=== PATIENT | female | born 1980 | race Two or more races ===

== ENCOUNTER 2019-02-21 06:00 | Inpatient (IN) | payer SELFPAY ==
[~2019-02-21] VITALS: Ht 157.5 cm; Wt 59.0 kg
[2019-02-21] MEDS ORDERED: ONDANSETRON PF 4 MG/2 ML VIAL. IV ONE (06:30)
[2019-02-21] MEDS ORDERED: FAMOTIDINE 20 MG/2 ML VIAL IVP ONE (06:30)
[2019-02-21] MEDS ORDERED: IV NORMAL SALINE 1000ML BAG 1,000 ML IV SCH (06:30)
--- NOTE | 2019-02-21 06:34 | PHYS DOC ---
Past Medical History Past Medical History: No Pertinent History Past Surgical History: (x3) Additional Information: Denies a smoking Alcohol Use: None Drug Use: None Adult General Chief Complaint Chief Complaint: NAUSEA/VOMITING/DIARRHA HPI HPI Patient is a 38 year old female who presents with complaining of nausea and vomiting and diarrhea and abdominal pain. Patient is [place]-speaking and history was taking via contracting specialist service. Patient complaining of sudden onset of nausea and vomiting since 2330 last night with 7- 8 episodes of nonbloody vomiting and episodes of diarrhea with constant epigastric aching pain. Patient denies radiation of pain and rated her pain 8/10. Patient denies fever and chills , urinary symptom and sick contact. Patient states she had episodes of pain that usually getting better with Zantac but this time her pain did not go away. Patient had a big dinner last night after Passover celebration. Review of Systems Review of Systems Constitutional: Denies fever or chills [] Eyes: Denies change in visual acuity, redness, or eye pain [] HENT: Denies nasal congestion or sore throat [] Respiratory: Denies cough or shortness of breath [] Cardiovascular: No additional information not addressed in HPI [] GI: Reports abdominal pain, nausea, vomiting, diarrhea [] : Denies dysuria or hematuria [] Musculoskeletal: Denies back pain or joint pain [] Integument: Denies rash or skin lesions [] Neurologic: Denies headache, focal weakness or sensory changes [] Endocrine: Denies polyuria or polydipsia [] All other systems were reviewed and found to be within normal limits, except as documented in this note. Current Medications Current Medications Current Medications Medications (Trade) Dose Ordered Sig/[facility] Start Time Stop Time Status Last Admin Dose Admin Famotidine (Pepcid Vial) 20 mg 1X ONCE 02/21/19 06:30 02/21/19 06:31 DC 02/21/19 06:41 20 MG Fentanyl Citrate (Fentanyl 2ml Vial) 50 mcg 1X ONCE 02/21/19 07:30 02/21/19 07:31 DC Ondansetron HCl (Zofran) 4 mg 1X ONCE 02/21/19 06:30 02/21/19 06:31 DC 02/21/19 06:39 4 MG Sodium Chloride 1,000 ml @ 1,000 mls/hr 1X ONCE 02/21/19 08:15 02/21/19 09:14 DC 02/21/19 09:41 1,000 MLS/HR Allergies Allergies Allergies Coded Allergies Type Severity Reaction Last Updated Verified No Known Drug Allergies 02/21/19 No Physical Exam Physical Exam Constitutional: Well developed, well nourished, mild distress, non-toxic appearance. [] HENT: Normocephalic, atraumatic, oropharynx dry. Eyes: PERRLA, EOMI, conjunctiva normal, no discharge. [] Neck: Normal range of motion, no tenderness, supple, no stridor. [] Cardiovascular:Heart rate regular rhythm, no murmur [] Lungs & Thorax: Bilateral breath sounds clear to auscultation [] Abdomen: Bowel sounds normal, soft, guarding in the epigastric and left lower quadrant , no tenderness, no masses, no pulsatile masses. [] Skin: Warm, dry, no erythema, no rash. [] Back: No tenderness, no CVA tenderness. [] Extremities: No tenderness, no cyanosis, no clubbing, ROM intact, no edema. [] Neurologic: Alert and oriented X 3, normal motor function, normal sensory function, no focal deficits noted. [] Psychologic: Affect normal, judgement normal, mood normal. [] Current Patient Data Vital Signs Vital Signs Date Time Temp Pulse Resp B/P (MAP) Pulse Ox O2 Delivery O2 Flow Rate FiO2 02/21/19 08:00 88 20 111/62 (78) 98 Room Air 02/21/19 06:03 98.2 98.2 Lab Values Laboratory Tests Test 02/21/19 06:10 02/21/19 06:15 02/21/19 06:21 02/21/19 08:25 Urine Collection Type Unknown Urine Color Yellow Urine Clarity Clear Urine pH 8.5 Urine Specific [place] 1.025 Urine Protein Negative mg/dL (NEG-TRACE) Urine Glucose (UA) Negative mg/dL (NEG) Urine Ketones (Stick) Negative mg/dL (NEG) Urine Blood Moderate (NEG) Urine Nitrite Negative (NEG) Urine Bilirubin Negative (NEG) Urine Urobilinogen Dipstick 0.2 mg/dL (0.2 mg/dL) Urine Leukocyte Esterase Trace (NEG) Urine RBC 1-2 /HPF (0-2) Urine WBC Rare /HPF (0-4) Urine Squamous Epithelial Cells Many /LPF Urine Bacteria Few /HPF (0-FEW) White Blood Count 19.7 x10^3/uL (4.0-11.0) H Red Blood Count 4.59 x10^6/uL (3.50-5.40) Hemoglobin 15.4 g/dL (12.0-15.5) Hematocrit 45.2 % (36.0-47.0) Mean Corpuscular Volume 99 fL (79-100) Mean Corpuscular Hemoglobin 34 pg (25-35) Mean Corpuscular Hemoglobin Concent 34 g/dL (31-37) Red Cell Distribution Width 13.3 % (11.5-14.5) Platelet Count 297 x10^3/uL (140-400) Neutrophils (%) (Auto) 87 % (31-73) H Lymphocytes (%) (Auto) 9 % (24-48) L Monocytes (%) (Auto) 4 % (0-9) Eosinophils (%) (Auto) 0 % (0-3) Basophils (%) (Auto) 0 % (0-3) Neutrophils # (Auto) 17.2 x10^3uL (1.8-7.7) H Lymphocytes # (Auto) 1.7 x10^3/uL (1.0-4.8) Monocytes # (Auto) 0.8 x10^3/uL (0.0-1.1) Eosinophils # (Auto) 0.0 x10^3/uL (0.0-0.7) Basophils # (Auto) 0.0 x10^3/uL (0.0-0.2) Platelet Estimate Pending Sodium Level 138 mmol/L (136-145) Potassium Level 3.6 mmol/L (3.5-5.1) Chloride Level 101 mmol/L (98-107) Carbon Dioxide Level 25 mmol/L (21-32) Anion Gap 12 (6-14) Blood Urea Nitrogen 11 mg/dL (7-20) Creatinine 0.7 mg/dL (0.6-1.0) Estimated GFR (Cockcroft-Gault) 94.2 BUN/Creatinine Ratio 16 (6-20) Glucose Level 154 mg/dL (70-99) H Calcium Level 9.5 mg/dL (8.5-10.1) Total Bilirubin 0.4 mg/dL (0.2-1.0) Aspartate Amino Transferase (AST) 17 U/L (15-37) Alanine Aminotransferase (ALT) 22 U/L (14-59) Alkaline Phosphatase 68 U/L (46-116) Total Protein 7.8 g/dL (6.4-8.2) Albumin 4.0 g/dL (3.4-5.0) Albumin/Globulin Ratio 1.1 (1.0-1.7) Lipase 208 U/L (73-393) POC Urine HCG, Qualitative Hcg negative (Negative) Lactic Acid Level 2.2 mmol/L (0.4-2.0) H Laboratory Tests 02/21/19 06:15 Laboratory Tests 02/21/19 06:15 EKG EKG [] Radiology/Procedures Radiology/Procedures [facility] [address] [place] [address] IMAGING REPORT Signed PATIENT: AYLIN MERINO ACCOUNT: [id number] : 1980 LOCATION: ER AGE: 38 SEX: F EXAM STATUS: REG ER ORD. PHYSICIAN: LEYLA LOPES MD REASON: nausea and vomiting and abdominal pain PROCEDURE: ABDOMEN LTD Right upper quadrant abdominal ultrasound History: N/V/RUQ PAIN Comparison: None. Technique: Transabdominal ultrasound images are obtained. Findings: Visualized pancreas is unremarkable. Liver is normal in echogenicity. Right hepatic lobe measures 17.1 cm. Portal flow is hepatopedal. There is no gallbladder wall thickening. Sonographic Ascencio sign is negative. There is a large echogenic rimmed gallstone with dense posterior acoustic shadowing. The gallstone measures up to 5 cm. No pericholecystic fluid is seen. Common bile duct caliber is normal measuring 4 mm in diameter. The right kidney measures 9.9 cm in length and is without evidence of obstruction or stone. IVC is unremarkable. IMPRESSION: Cholelithiasis. Electronically signed by: Leighton Mahan MD (02/21/2019 8:01 AM) [id number] DICTATED and SIGNED BY: LEIGHTON MAHAN MD DATE: 02/21/19 0801 IMAGING REPORT Signed PATIENT: AYLIN MERINO ACCOUNT: [id number] : 1980 LOCATION: [address] [place] [address] AGE: 38 SEX: F EXAM STATUS: ADM IN ORD. PHYSICIAN: LEYLA LOPES MD REASON: abdominal pain, leukocytosis, cholelithiasis PROCEDURE: CT ABD PELV W/ IV CONTRST ONLY PQRS Compliance Statement: One or more of the following individualized dose reduction techniques were utilized for this examination: 1. Automated exposure control 2. Adjustment of the mA and/or kV according to patient size 3. Use of iterative reconstruction technique CT ABD PELV W/ IV CONTRST ONLY Clinical Indication: Nausea, vomiting, diarrhea. Comparison: Limited abdominal ultrasound, earlier same day. Technique: Helical CT imaging of the abdomen and pelvis is performed after 75 cc of Omnipaque 300 IV contrast. Oral contrast not given. Findings: Lung bases essentially clear. Cardiac size normal. There are 2 large partially rim calcified gallstones. Each measures on the order of 2.5 cm. No gallbladder wall thickening is identified. Liver, spleen, pancreas, adrenal glands, and abdominal aorta caliber are normal. Kidneys enhance symmetrically, no hydronephrosis. Small right upper pole cortical cyst. Small interpolar left cortical cyst posteriorly. Stomach unremarkable. There are multiple small bowel loops that are not dilated but demonstrate mild wall thickening. The appendix is normal caliber. No surrounding inflammation. The descending and sigmoid colon are not well distended. There is borderline wall thickening. There is mucosal hyperenhancement. Otherwise there is no colon wall thickening. No abdominal adenopathy or free fluid. The urinary bladder is normal. Uterus unremarkable. No pelvic free fluid. No acute bone abnormality. IMPRESSION: 1. Multiple mid small bowel loops are mildly thick-walled, fluid-filled, and nondilated. There is mucosal hyperenhancement and borderline wall thickening of the descending and sigmoid colon. Findings suggestive of nonspecific enterocolitis. 2. Cholelithiasis. 3. There is no bowel obstruction. Electronically signed by: Leighton Mahan MD (02/21/2019 9:30 AM) [id number] DICTATED and SIGNED BY: LEIGHTON MAHAN MD DATE: 02/21/19 0930 Course & Med Decision Making Course & Med Decision Making Pertinent Labs and Imaging studies reviewed. (See chart for details) Evaluation of patient in ER showed 38-year-old female patient with complaining of episodes of vomiting and diarrhea and abdominal pain. Patient had a white count of 19.7 and cholelithiasis. Lactic acid was 2.2. Patient did not have hypotension or fever. Patient treated with IV fluid and Zofran and fentanyl with improvement of her condition. Patient treated for sepsis with IV fluid and antibiotic. CT of abdomen/pelvic is pending.Patient requiring admission for further evaluation and treatment. Discussed with Dr. Durham who is in agreement with admission. Discussed findings and plan with patient and family, who acknowledge understanding and agreement. Dragon Disclaimer Dragon Disclaimer This electronic medical record was generated, in whole or in part, using a voice recognition dictation system. Departure Departure Impression: Primary Impression: Sepsis Additional Impressions: Cholecystitis Acute gastroenteritis Colitis Disposition: ADMITTED INPATIENT (at 0 820) Admitting Physician: Ofelia Durham (accepted admission at 0 818) Condition: IMPROVED Problem Qualifiers Primary Impression: Sepsis Sepsis type: sepsis due to unspecified organism Qualified Codes: A41.9 - Sepsis, unspecified organism LEYLA LOPES MD Feb 21, 2019 06:34
[2019-02-21 06:45] LABS: BASO % 0 % (0-3); CALCIUM 9.5 mg/dL (8.5-10.1); CREATININE 0.7 mg/dL (0.6-1.0); EOS % 0 % (0-3); GFR 94.2; HEMATOCRIT 45.2 % (36.0-47.0); HEMOGLOBIN 15.4 g/dL (12.0-15.5); LYMPH # 1.7 x10^3/uL (1.0-4.8); LYMPH % 9 % (24-48); MEAN CORPUSCULAR HEMOGLOBIN 34 pg (25-35); MEAN CORPUSCULAR HGB CONC 34 g/dL (31-37); MEAN CORPUSCULAR VOLUME 99 fL (79-100); MONO # 0.8 x10^3/uL (0.0-1.1); MONO % 4 % (0-9); NEUT # 17.2 x10^3uL (1.8-7.7); NEUT % 87 % (31-73); PLATELET COUNT 297 x10^3/uL (140-400); POTASSIUM 3.6 mmol/L (3.5-5.1); RED BLOOD COUNT 4.59 x10^6/uL (3.50-5.40); RED CELL DISTRIBUTION WIDTH 13.3 % (11.5-14.5); WHITE BLOOD COUNT 19.7 x10^3/uL (4.0-11.0)
[2019-02-21 06:49] LABS: ALBUMIN/GLOBULIN RATIO 1.1 (1.0-1.7); TOTAL BILIRUBIN 0.4 mg/dL (0.2-1.0); TOTAL PROTEIN 7.8 g/dL (6.4-8.2)
[2019-02-21 06:50] LABS: BILIRUBIN,URINE NEGATIVE (NEG); CLARITY,URINE CLEAR; COLOR,URINE YELLOW; NITRITE,URINE NEGATIVE (NEG); PH,URINE 8.5; PROTEIN,URINE NEGATIVE (NEG-TRACE); UROBILINOGEN,URINE 0.2 mg/dL (0.2 mg/dL)
[2019-02-21 07:05] LABS: BACTERIA,URINE FEW /HPF (0-FEW); SQUAMOUS EPITHELIAL CELL,UR MANY /LPF; WBC,URINE RARE /HPF (0-4)
[2019-02-21] MEDS ORDERED: fentaNYL PF VIAL 100 MCG/2 ML VIAL IV ONE (07:30)
--- NOTE | 2019-02-21 08:04 | RAD ---
Right upper quadrant abdominal ultrasound History: N/V/RUQ PAIN Comparison: None. Technique: Transabdominal ultrasound images are obtained. Findings: Visualized pancreas is unremarkable. Liver is normal in echogenicity. Right hepatic lobe measures 17.1 cm. Portal flow is hepatopedal. There is no gallbladder wall thickening. Sonographic Ascencio sign is negative. There is a large echogenic rimmed gallstone with dense posterior acoustic shadowing. The gallstone measures up to 5 cm. No pericholecystic fluid is seen. Common bile duct caliber is normal measuring 4 mm in diameter. The right kidney measures 9.9 cm in length and is without evidence of obstruction or stone. IVC is unremarkable. IMPRESSION: Cholelithiasis. Electronically signed by: Leighton Mahan MD (02/21/2019 8:01 AM) [id number]
[2019-02-21] MEDS ORDERED: IV NORMAL SALINE 1000ML BAG 1,000 ML IV ONE ×3 (08:15→15:00)
[2019-02-21] MEDS ORDERED: CONTRAST GIVEN. MC PRN (08:30)
[2019-02-21] MEDS ORDERED: IOHEXOL 300 MG/ML 100ML VIAL. IV ONE (08:30)
[2019-02-21] MEDS ORDERED: cefTRIAXone IV Push 1 GM VIAL. IVP ONE (09:15)
--- NOTE | 2019-02-21 09:33 | RAD ---
PQRS Compliance Statement: One or more of the following individualized dose reduction techniques were utilized for this examination: 1. Automated exposure control 2. Adjustment of the mA and/or kV according to patient size 3. Use of iterative reconstruction technique CT ABD PELV W/ IV CONTRST ONLY Clinical Indication: Nausea, vomiting, diarrhea. Comparison: Limited abdominal ultrasound, earlier same day. Technique: Helical CT imaging of the abdomen and pelvis is performed after 75 cc of Omnipaque 300 IV contrast. Oral contrast not given. Findings: Lung bases essentially clear. Cardiac size normal. There are 2 large partially rim calcified gallstones. Each measures on the order of 2.5 cm. No gallbladder wall thickening is identified. Liver, spleen, pancreas, adrenal glands, and abdominal aorta caliber are normal. Kidneys enhance symmetrically, no hydronephrosis. Small right upper pole cortical cyst. Small interpolar left cortical cyst posteriorly. Stomach unremarkable. There are multiple small bowel loops that are not dilated but demonstrate mild wall thickening. The appendix is normal caliber. No surrounding inflammation. The descending and sigmoid colon are not well distended. There is borderline wall thickening. There is mucosal hyperenhancement. Otherwise there is no colon wall thickening. No abdominal adenopathy or free fluid. The urinary bladder is normal. Uterus unremarkable. No pelvic free fluid. No acute bone abnormality. IMPRESSION: 1. Multiple mid small bowel loops are mildly thick-walled, fluid-filled, and nondilated. There is mucosal hyperenhancement and borderline wall thickening of the descending and sigmoid colon. Findings suggestive of nonspecific enterocolitis. 2. Cholelithiasis. 3. There is no bowel obstruction. Electronically signed by: Leighton Mahan MD (02/21/2019 9:30 AM) [id number]
[2019-02-21 10:12] LABS: % BANDS 22 % (0-9); % BASOS 1 % (0-3); % LYMPHS 5 % (24-48); % MONOS 1 % (0-10); % SEGS 71 % (35-66)
[2019-02-21 10:17] LABS: PLT ESTIMATE ADEQUATE (ADEQUATE)
[2019-02-21 10:18] LABS: ANISOCYTOSIS SLIGHT
[2019-02-21 10:19] LABS: TOXIC VACUOLATION SLIGHT
--- NOTE | 2019-02-21 10:42 | PDOC2 ---
MORENITA GONZALEZ [employer] 02/21/19 1042: CONSULT Date of Consult Date of Consult DATE: 02/21/19 TIME: 10:35 Reason for Consult Reason for Consult: cholecystitis Referring Physician Referring Physician: ER Identification/Chief Complaint Chief Complaint abdominal pain Source Source: Chart review, Patient History of Present Illness Reason for Visit: Abdominal pain, nausea, emesis and diarrhea started yesterday around 11pm. Currently she is feeling better. No similar symptoms in past. Pain was mainly right side, epigastric Past Medical History Past Medical History no pertinent hx Past Surgical History Past Surgical History: (x3) Family History Family History: Other (noncontributory to current illness ) Social History No ALCOHOL: none Drugs: None Lives: with Family Current Problem List Problem List Problems Medical Problems: (1) Acute gastroenteritis Status: Acute (2) Cholecystitis Status: Acute (3) Colitis Status: Acute (4) Sepsis Status: Acute Current Medications Current Medications Current Medications Sodium Chloride 1,000 ml @ 1,000 mls/hr Q1H IV Last administered on 02/21/19at 06:41; Start 02/21/19 at 06:30; Stop 02/21/19 at 07:29; Status DC Ondansetron HCl (Zofran) 4 mg 1X ONCE IV Last administered on 02/21/19at 06:39; Start 02/21/19 at 06:30; Stop 02/21/19 at 06:31; Status DC Famotidine (Pepcid Vial) 20 mg 1X ONCE IVP Last administered on 02/21/19at 06:41; Start 02/21/19 at 06:30; Stop 02/21/19 at 06:31; Status DC Fentanyl Citrate (Fentanyl 2ml Vial) 50 mcg 1X ONCE IV ; Start 02/21/19 at 07:30; Stop 02/21/19 at 07:31; Status DC Sodium Chloride 1,000 ml @ 1,000 mls/hr 1X ONCE IV Last administered on 02/21/19at 09:41; Start 02/21/19 at 08:15; Stop 02/21/19 at 09:14; Status DC Iohexol (Omnipaque 300 Mg/ml) 75 ml 1X ONCE IV Last administered on 02/21/19at 08:30; Start 02/21/19 at 08:30; Stop 02/21/19 at 08:31; Status DC Info (CONTRAST GIVEN -- Rx MONITORING) 1 each PRN DAILY PRN MC SEE COMMENTS; Start 02/21/19 at 08:30; Stop 02/23/19 at 08:29 Sodium Chloride 1,000 ml @ 150 mls/hr Q6H40M IV ; Start 02/21/19 at 08:43; Stop 02/22/19 at 08:42 Ceftriaxone Sodium (Rocephin) 1 gm 1X ONCE IVP Last administered on 02/21/19at 09:41; Start 02/21/19 at 09:15; Stop 02/21/19 at 09:16; Status DC Sodium Chloride 1,000 ml @ 1,000 mls/hr 1X ONCE IV ; Start 02/21/19 at 09:15; Stop 02/21/19 at 10:14; Status DC Allergies Allergies: Coded Allergies: No Known Drug Allergies (Unverified , 02/21/19) ROS General: No: Chills, Other (fevers) PSYCHOLOGICAL ROS: No: Anxiety, Depression Eyes: No Blurry vision, No Double vision HEENT: No: Heacaches, Sore Throat Hematological and Lymphatic: No: Bleeding Problems, Blood Clots Respiratory: No: Cough, Shortness of breath Cardiovascular: No Chest Pain, No Palpitations Gastrointestinal: Yes Other (see hpi) Genitourinary: No Dysuria, No Hematuria Musculoskeletal: No Joint Pain, No Muscle Pain Neurological: No Confusion, No Impaired Coord/balance Skin: No Pruritus, No Rash Physical Exam General: Alert, Oriented X3, Cooperative, No acute distress HEENT: PERRLA, Mucous membr. moist/pink Lungs: Clear to auscultation, Normal air movement Heart: Regular rate, Normal S1, Normal S2, No murmurs Abdomen: Soft, Other (mildly TTP upper abdomen ) Extremities: No clubbing, No cyanosis Skin: No rashes, No breakdown Neuro: Normal gait, Normal speech Psych/Mental Status: Mental status NL MUSCULOSKELETAL: No deformity, No swelling Vitals VITALS Vital Signs Date Time Temp Pulse Resp B/P (MAP) Pulse Ox O2 Delivery O2 Flow Rate FiO2 02/21/19 08:30 96 27 100 Room Air 02/21/19 08:00 111/62 (78) 02/21/19 06:03 98.2 98.2 Labs Labs Laboratory Tests Test 02/21/19 06:10 02/21/19 06:15 02/21/19 06:21 02/21/19 08:25 Urine Collection Type Unknown Urine Color Yellow Urine Clarity Clear Urine pH 8.5 Urine Specific [place] 1.025 Urine Protein Negative mg/dL (NEG-TRACE) Urine Glucose (UA) Negative mg/dL (NEG) Urine Ketones (Stick) Negative mg/dL (NEG) Urine Blood Moderate (NEG) Urine Nitrite Negative (NEG) Urine Bilirubin Negative (NEG) Urine Urobilinogen Dipstick 0.2 mg/dL (0.2 mg/dL) Urine Leukocyte Esterase Trace (NEG) Urine RBC 1-2 /HPF (0-2) Urine WBC Rare /HPF (0-4) Urine Squamous Epithelial Cells Many /LPF Urine Bacteria Few /HPF (0-FEW) White Blood Count 19.7 x10^3/uL (4.0-11.0) Red Blood Count 4.59 x10^6/uL (3.50-5.40) Hemoglobin 15.4 g/dL (12.0-15.5) Hematocrit 45.2 % (36.0-47.0) Mean Corpuscular Volume 99 fL (79-100) Mean Corpuscular Hemoglobin 34 pg (25-35) Mean Corpuscular Hemoglobin Concent 34 g/dL (31-37) Red Cell Distribution Width 13.3 % (11.5-14.5) Platelet Count 297 x10^3/uL (140-400) Neutrophils (%) (Auto) 87 % (31-73) Lymphocytes (%) (Auto) 9 % (24-48) Monocytes (%) (Auto) 4 % (0-9) Eosinophils (%) (Auto) 0 % (0-3) Basophils (%) (Auto) 0 % (0-3) Neutrophils # (Auto) 17.2 x10^3uL (1.8-7.7) Lymphocytes # (Auto) 1.7 x10^3/uL (1.0-4.8) Monocytes # (Auto) 0.8 x10^3/uL (0.0-1.1) Eosinophils # (Auto) 0.0 x10^3/uL (0.0-0.7) Basophils # (Auto) 0.0 x10^3/uL (0.0-0.2) Segmented Neutrophils % 71 % (35-66) Band Neutrophils % 22 % (0-9) Lymphocytes % 5 % (24-48) Monocytes % 1 % (0-10) Basophils % 1 % (0-3) Toxic Vacuolation Slight Platelet Estimate Adequate (ADEQUATE) Anisocytosis Slight Sodium Level 138 mmol/L (136-145) Potassium Level 3.6 mmol/L (3.5-5.1) Chloride Level 101 mmol/L (98-107) Carbon Dioxide Level 25 mmol/L (21-32) Anion Gap 12 (6-14) Blood Urea Nitrogen 11 mg/dL (7-20) Creatinine 0.7 mg/dL (0.6-1.0) Estimated GFR (Cockcroft-Gault) 94.2 BUN/Creatinine Ratio 16 (6-20) Glucose Level 154 mg/dL (70-99) Calcium Level 9.5 mg/dL (8.5-10.1) Total Bilirubin 0.4 mg/dL (0.2-1.0) Aspartate Amino Transf (AST/SGOT) 17 U/L (15-37) Alanine Aminotransferase (ALT/SGPT) 22 U/L (14-59) Alkaline Phosphatase 68 U/L (46-116) Total Protein 7.8 g/dL (6.4-8.2) Albumin 4.0 g/dL (3.4-5.0) Albumin/Globulin Ratio 1.1 (1.0-1.7) Lipase 208 U/L (73-393) Bedside Urine HCG, Qualitative Hcg negative (Negative) Lactic Acid Level 2.2 mmol/L (0.4-2.0) Laboratory Tests Test 02/21/19 06:10 02/21/19 06:15 02/21/19 06:21 02/21/19 08:25 Urine Collection Type Unknown Urine Color Yellow Urine Clarity Clear Urine pH 8.5 Urine Specific [place] 1.025 Urine Protein Negative mg/dL (NEG-TRACE) Urine Glucose (UA) Negative mg/dL (NEG) Urine Ketones (Stick) Negative mg/dL (NEG) Urine Blood Moderate (NEG) Urine Nitrite Negative (NEG) Urine Bilirubin Negative (NEG) Urine Urobilinogen Dipstick 0.2 mg/dL (0.2 mg/dL) Urine Leukocyte Esterase Trace (NEG) Urine RBC 1-2 /HPF (0-2) Urine WBC Rare /HPF (0-4) Urine Squamous Epithelial Cells Many /LPF Urine Bacteria Few /HPF (0-FEW) White Blood Count 19.7 x10^3/uL (4.0-11.0) Red Blood Count 4.59 x10^6/uL (3.50-5.40) Hemoglobin 15.4 g/dL (12.0-15.5) Hematocrit 45.2 % (36.0-47.0) Mean Corpuscular Volume 99 fL (79-100) Mean Corpuscular Hemoglobin 34 pg (25-35) Mean Corpuscular Hemoglobin Concent 34 g/dL (31-37) Red Cell Distribution Width 13.3 % (11.5-14.5) Platelet Count 297 x10^3/uL (140-400) Neutrophils (%) (Auto) 87 % (31-73) Lymphocytes (%) (Auto) 9 % (24-48) Monocytes (%) (Auto) 4 % (0-9) Eosinophils (%) (Auto) 0 % (0-3) Basophils (%) (Auto) 0 % (0-3) Neutrophils # (Auto) 17.2 x10^3uL (1.8-7.7) Lymphocytes # (Auto) 1.7 x10^3/uL (1.0-4.8) Monocytes # (Auto) 0.8 x10^3/uL (0.0-1.1) Eosinophils # (Auto) 0.0 x10^3/uL (0.0-0.7) Basophils # (Auto) 0.0 x10^3/uL (0.0-0.2) Segmented Neutrophils % 71 % (35-66) Band Neutrophils % 22 % (0-9) Lymphocytes % 5 % (24-48) Monocytes % 1 % (0-10) Basophils % 1 % (0-3) Toxic Vacuolation Slight Platelet Estimate Adequate (ADEQUATE) Anisocytosis Slight Sodium Level 138 mmol/L (136-145) Potassium Level 3.6 mmol/L (3.5-5.1) Chloride Level 101 mmol/L (98-107) Carbon Dioxide Level 25 mmol/L (21-32) Anion Gap 12 (6-14) Blood Urea Nitrogen 11 mg/dL (7-20) Creatinine 0.7 mg/dL (0.6-1.0) Estimated GFR (Cockcroft-Gault) 94.2 BUN/Creatinine Ratio 16 (6-20) Glucose Level 154 mg/dL (70-99) Calcium Level 9.5 mg/dL (8.5-10.1) Total Bilirubin 0.4 mg/dL (0.2-1.0) Aspartate Amino Transf (AST/SGOT) 17 U/L (15-37) Alanine Aminotransferase (ALT/SGPT) 22 U/L (14-59) Alkaline Phosphatase 68 U/L (46-116) Total Protein 7.8 g/dL (6.4-8.2) Albumin 4.0 g/dL (3.4-5.0) Albumin/Globulin Ratio 1.1 (1.0-1.7) Lipase 208 U/L (73-393) Bedside Urine HCG, Qualitative Hcg negative (Negative) Lactic Acid Level 2.2 mmol/L (0.4-2.0) Assessment/Plan Assessment/Plan abdominal pain, diarrhea US notes cholelithiasis, no cholecystitis findings CT findings of enterocolitis treat colitis, GI consult MARYAM ISLAS MD 02/21/19 1113: CONSULT Assessment/Plan Assessment/Plan Pt seen and examined. Agree with Ms. Gonzalez's note Pt with c/o N/V/D and abd pain abd soft, TTP RUQ and RLQ imaging c/w enterocolitis cont supportive care, ideally will be self limiting no surgical plans Thanks for consult! MORENITA GONZALEZ APRN Feb 21, 2019 10:42 MARYAM ISLAS MD Feb 21, 2019 11:13
[2019-02-21 10:47] VITALS: BP 114/65
--- NOTE | 2019-02-21 11:47 | NUR ---
Cleared reassessments from ED on [facility] to clear red boxes.
--- NOTE | 2019-02-21 12:38 | PDOC2 ---
GI CONSULT Reason For Consult: Enterocolitis HPI: HPI: 38 y/o female admitted through ER. Speaks Nicaraguan - translation help from RN. Tells me 4 years of recurrent epigastric/RUQ pain, n/v, and diarrhea. In between is asymptomatic. Precipitating by eating greasy foods. Latest episode awoke her from sleep last night at 11:00 p.m. Celebrated Easter yesterday. Reports bilious emesis x 8, mushy stools x 12. Abdomen hurts more when vomiting and stooling. Due to chronicity of symptoms, thought she might have gastritis so has been taking ranitidine PRN for a few years - usually helps but ineffective this time. Does have some heartburn sometimes. No dysphagia, hematemesis, hematochezia, melena, constipation, or weight loss. No previous EGD or colonoscopy. No GB, liver, pancreas, or PUD history. Tried ibuprofen this time because ranitidine wasn't helping. Labs unremarkable except WBC 19.7. On US: 5cm gallstone, normal CBD (4mm). On CT: cholelithiasis, unremarkable stomach, and "nonspecific enterocolitis" w/ non-dilated SB loops w/ mild wall thickening, descending and sigmoid colon not well distended w/ borderline wall thickening. Was given Rocephin and famotidine in the ER. Surgery following and suspects self-limiting enterocolitis as cause. PMH: PMH: x 3 FH: Family History: No pertinent hx (denies GB disease, GI cancers, and IBD) Social History: Smoke: No ALCOHOL: none Drugs: None ROS: GEN: Denies fevers, chills, sweats HEENT: Denies blurred vision, sore throat CV: Denies chest pain RESP: Denies shortness of air, cough GI: Per HPI : Denies hematuria, dysuria ENDO: Denies weight changes NEURO: Denies confusion, dizziness MSK: Denies weakness, joint pain/swelling SKIN: Denies jaundice, pruritus Vitals: Vitals: Vital Signs Date Time Temp Pulse Resp B/P (MAP) Pulse Ox O2 Delivery O2 Flow Rate FiO2 02/21/19 10:47 99.5 89 16 114/65 (81) Room Air 99.5 02/21/19 08:30 100 Labs: Labs: Laboratory Tests Test 02/21/19 06:10 02/21/19 06:15 02/21/19 06:21 02/21/19 08:25 Urine Collection Type Unknown Urine Color Yellow Urine Clarity Clear Urine pH 8.5 Urine Specific [place] 1.025 Urine Protein Negative mg/dL (NEG-TRACE) Urine Glucose (UA) Negative mg/dL (NEG) Urine Ketones (Stick) Negative mg/dL (NEG) Urine Blood Moderate (NEG) Urine Nitrite Negative (NEG) Urine Bilirubin Negative (NEG) Urine Urobilinogen Dipstick 0.2 mg/dL (0.2 mg/dL) Urine Leukocyte Esterase Trace (NEG) Urine RBC 1-2 /HPF (0-2) Urine WBC Rare /HPF (0-4) Urine Squamous Epithelial Cells Many /LPF Urine Bacteria Few /HPF (0-FEW) White Blood Count 19.7 x10^3/uL (4.0-11.0) Red Blood Count 4.59 x10^6/uL (3.50-5.40) Hemoglobin 15.4 g/dL (12.0-15.5) Hematocrit 45.2 % (36.0-47.0) Mean Corpuscular Volume 99 fL (79-100) Mean Corpuscular Hemoglobin 34 pg (25-35) Mean Corpuscular Hemoglobin Concent 34 g/dL (31-37) Red Cell Distribution Width 13.3 % (11.5-14.5) Platelet Count 297 x10^3/uL (140-400) Neutrophils (%) (Auto) 87 % (31-73) Lymphocytes (%) (Auto) 9 % (24-48) Monocytes (%) (Auto) 4 % (0-9) Eosinophils (%) (Auto) 0 % (0-3) Basophils (%) (Auto) 0 % (0-3) Neutrophils # (Auto) 17.2 x10^3uL (1.8-7.7) Lymphocytes # (Auto) 1.7 x10^3/uL (1.0-4.8) Monocytes # (Auto) 0.8 x10^3/uL (0.0-1.1) Eosinophils # (Auto) 0.0 x10^3/uL (0.0-0.7) Basophils # (Auto) 0.0 x10^3/uL (0.0-0.2) Segmented Neutrophils % 71 % (35-66) Band Neutrophils % 22 % (0-9) Lymphocytes % 5 % (24-48) Monocytes % 1 % (0-10) Basophils % 1 % (0-3) Toxic Vacuolation Slight Platelet Estimate Adequate (ADEQUATE) Anisocytosis Slight Sodium Level 138 mmol/L (136-145) Potassium Level 3.6 mmol/L (3.5-5.1) Chloride Level 101 mmol/L (98-107) Carbon Dioxide Level 25 mmol/L (21-32) Anion Gap 12 (6-14) Blood Urea Nitrogen 11 mg/dL (7-20) Creatinine 0.7 mg/dL (0.6-1.0) Estimated GFR (Cockcroft-Gault) 94.2 BUN/Creatinine Ratio 16 (6-20) Glucose Level 154 mg/dL (70-99) Calcium Level 9.5 mg/dL (8.5-10.1) Total Bilirubin 0.4 mg/dL (0.2-1.0) Aspartate Amino Transf (AST/SGOT) 17 U/L (15-37) Alanine Aminotransferase (ALT/SGPT) 22 U/L (14-59) Alkaline Phosphatase 68 U/L (46-116) Total Protein 7.8 g/dL (6.4-8.2) Albumin 4.0 g/dL (3.4-5.0) Albumin/Globulin Ratio 1.1 (1.0-1.7) Lipase 208 U/L (73-393) Bedside Urine HCG, Qualitative Hcg negative (Negative) Lactic Acid Level 2.2 mmol/L (0.4-2.0) Allergies: Coded Allergies: No Known Drug Allergies (Unverified , 02/21/19) Medications: Current Medications Medications (Trade) Dose Ordered Sig/Chao Route PRN Reason Start Time Stop Time Status Last Admin Dose Admin Sodium Chloride 1,000 ml @ 1,000 mls/hr Q1H IV 02/21/19 06:30 02/21/19 07:29 DC 02/21/19 06:41 Ondansetron HCl (Zofran) 4 mg 1X ONCE IV 02/21/19 06:30 02/21/19 06:31 DC 02/21/19 06:39 Famotidine (Pepcid Vial) 20 mg 1X ONCE IVP 02/21/19 06:30 02/21/19 06:31 DC 02/21/19 06:41 Sodium Chloride 1,000 ml @ 1,000 mls/hr 1X ONCE IV 02/21/19 08:15 02/21/19 09:14 DC 02/21/19 09:41 Iohexol (Omnipaque 300 Mg/ml) 75 ml 1X ONCE IV 02/21/19 08:30 02/21/19 08:31 DC 02/21/19 08:30 Ceftriaxone Sodium (Rocephin) 1 gm 1X ONCE IVP 02/21/19 09:15 02/21/19 09:16 DC 02/21/19 09:41 Imaging: Imaging: CT A/P w/ IV contrast 02/21 Findings: Lung bases essentially clear. Cardiac size normal. There are 2 large partially rim calcified gallstones. Each measures on theorder of 2.5 cm. No gallbladder wall thickening is identified. Liver, spleen, pancreas, adrenal glands, and abdominal aorta caliber are normal. Kidneys enhance symmetrically, no hydronephrosis. Small right upper pole cortical cyst. Small interpolar left cortical cyst posteriorly. Stomach unremarkable. There are multiple small bowel loops that are not dilated but demonstrate mild wall thickening. The appendix is normal caliber. No surrounding inflammation. The descending and sigmoid colon are not well distended. There is borderline wall thickening. There is mucosal hyperenhancement. Otherwise there is no colon wall thickening. No abdominal adenopathy or free fluid. The urinary bladder is normal. Uterus unremarkable. No pelvic free fluid. No acute bone abnormality. IMPRESSION: 1. Multiple mid small bowel loops are mildly thick-walled, fluid-filled, and nondilated. There is mucosal hyperenhancement and borderline wall thickening of the descending and sigmoid colon. Findings suggestive of nonspecific enterocolitis. 2. Cholelithiasis. 3. There is no bowel obstruction. RUQ US 02/21 Visualized pancreas is unremarkable. Liver is normal in echogenicity. Right hepatic lobe measures 17.1 cm. Portal flow is hepatopedal. There is no gallbladder wall thickening. Sonographic Ascencio sign is negative. There is a large echogenic rimmed gallstone with dense posterior acoustic shadowing. The gallstone measures up to 5 cm. No pericholecystic fluid is seen. Common bile duct caliber is normal measuring 4 mm in diameter. The right kidney measures 9.9 cm in length and is without evidence of obstruction or stone. IVC is unremarkable. IMPRESSION: Cholelithiasis. PE: GEN: NAD HEENT: Atraumatic, PERRL LUNGS: CTAB HEART: RRR ABD: soft, quite tender epigastrium to RUQ w/ some guarding, BS+ EXTREMITY: No edema SKIN: No rashes, no jaundice NEURO/PSYCH: A & O 3 A/P: A/P: Recurrent epigastric/RUQ pain, vomiting, diarrhea Intermittent heartburn Cholelithiasis Abnormal CT - "nonspecific enterocolitis" CRC screen - average risk -- Reviewed w/ [facility] - check HIDA w/ EF tomorrow, okay for clears today. Will also add PPI - IV for now, can change to PO as able. Stool studies for completeness. STEFFI DINH Feb 21, 2019 12:38
[2019-02-21] MEDS: IV NORMAL SALINE 1000ML BAG 1,000 ML IV SCH ×3 (12:51→18:36)
[2019-02-21] MEDS ORDERED: fentaNYL PF VIAL 100 MCG/2 ML VIAL IV PRN (13:00)
[2019-02-21] MEDS ORDERED: oxyCODONE/APAP 5/325 1 TAB TABLET PO PRN (13:00)
[2019-02-21] MEDS: PANTOPRAZOLE IV PUSH 40 MG VIAL. IVP SCH (14:20)
--- NOTE | 2019-02-21 14:48 | PDOC1 ---
History and Physical Date of Admission Date of Admission DATE: 02/21/19 TIME: 14:44 Source Source: Chart review, Patient History of Present Illness History of Present Illness Suzi is a 38 year old female who presents with complaining of nausea and vomiting and diarrhea and abdominal pain. no travel, no sick contacts she had 8/10 pain, better now s/p IV pain meds sudden nausea last night, vomited 8 times now, constant epigastric aching pain. she has had multiple episodes of diarrhea, which she feels is better, but just maybe in the past 1-2 hours. co Past Medical History Cardiovascular: No pertinent hx Pulmonary: No pertinent hx GI: No pertinent hx Heme/Onc: No pertinent hx Hepatobiliary: No pertinent hx Psych: No pertinent hx Rheumatologic: No pertinent hx Past Surgical History Past Surgical History: (x3) Family History Family History: Other (noncontributory to current illness ) Social History Smoke: No ALCOHOL: none Drugs: None Current Problem List Problem List Problems Medical Problems: (1) Acute gastroenteritis Status: Acute (2) Cholecystitis Status: Acute (3) Colitis Status: Acute (4) Sepsis Status: Acute Current Medications Current Medications Current Medications Sodium Chloride 1,000 ml @ 1,000 mls/hr Q1H IV Last administered on 02/21/19at 06:41; Start 02/21/19 at 06:30; Stop 02/21/19 at 07:29; Status DC Ondansetron HCl (Zofran) 4 mg 1X ONCE IV Last administered on 02/21/19at 06:39; Start 02/21/19 at 06:30; Stop 02/21/19 at 06:31; Status DC Famotidine (Pepcid Vial) 20 mg 1X ONCE IVP Last administered on 02/21/19at 06:41; Start 02/21/19 at 06:30; Stop 02/21/19 at 06:31; Status DC Fentanyl Citrate (Fentanyl 2ml Vial) 50 mcg 1X ONCE IV ; Start 02/21/19 at 07: 30; Stop 02/21/19 at 07:31; Status DC Sodium Chloride 1,000 ml @ 1,000 mls/hr 1X ONCE IV Last administered on 02/21/19at 09:41; Start 02/21/19 at 08:15; Stop 02/21/19 at 09:14; Status DC Iohexol (Omnipaque 300 Mg/ml) 75 ml 1X ONCE IV Last administered on 02/21/19at 08:30; Start 02/21/19 at 08:30; Stop 02/21/19 at 08:31; Status DC Info (CONTRAST GIVEN -- Rx MONITORING) 1 each PRN DAILY PRN MC SEE COMMENTS; Start 02/21/19 at 08:30; Stop 02/23/19 at 08:29 Sodium Chloride 1,000 ml @ 150 mls/hr Q6H40M IV Last administered on 02/21/19at 12:51; Start 02/21/19 at 08:43; Stop 02/22/19 at 08:42 Ceftriaxone Sodium (Rocephin) 1 gm 1X ONCE IVP Last administered on 02/21/19at 09:41; Start 02/21/19 at 09:15; Stop 02/21/19 at 09:16; Status DC Sodium Chloride 1,000 ml @ 1,000 mls/hr 1X ONCE IV ; Start 02/21/19 at 09:15; Stop 02/21/19 at 10:14; Status DC Fentanyl Citrate (Fentanyl 2ml Vial) 50 mcg PRN Q2HR PRN IV PAIN; Start 02/21/19 at 13:00 Oxycodone/ Acetaminophen (Percocet 5/325) 1 tab PRN Q4HRS PRN PO PAIN Last administered on 02/21/19at 13:26; Start 02/21/19 at 13:00 Pantoprazole Sodium (PROTONIX VIAL for IV PUSH) 40 mg DAILYAC IVP Last administered on 02/21/19at 14:20; Start 02/21/19 at 14:00 Allergies Allergies: Coded Allergies: No Known Drug Allergies (Unverified , 02/21/19) ROS General: YES: Chills; No: Night Sweats, Fatigue, Malaise, Appetite, Other PSYCHOLOGICAL ROS: No: Anxiety, Behavioral Disorder, Concentration difficultie, Decreased libido, Depression, Disorientation, Hallucinations, Hostility, Irritablity, Memory difficulties, Mood Swings, Obsessive thoughts, Physical abuse, Sexual abuse, Sleep disturbances, Suicidal ideation, Other Eyes: No Blurry vision, No Decreased vision, No Double vision, No Dry eyes, No Excessive tearing, No Eye Pain, No Itchy Eyes, No Loss of vision, No Photophobia, No Scotomata, No Uses contacts, No Uses glasses, No Other HEENT: No: Heacaches, Visual Changes, Hearing change, Nasal congestion, Nasal discharge, Oral lesions, Sinus pain, Sore Throat, Epistaxis, Sneezing, Snoring, Tinnitus, Vertigo, Vocal changes, Other Respiratory: No: Cough, Hemoptysis, Orthopnea, Pleuritic Pain, Shortness of breath, SOB with excertion, Sputum Changes, Stridor, Tachypnea, Wheezing, Other Cardiovascular: No Chest Pain, No Palpitations, No Orthopnea, No Paroxysmal Noc. Dyspnea, No Edema, No Lt Headedness, No Other Gastrointestinal: Yes Nausea, Yes Abdominal Pain, Yes Diarrhea Genitourinary: No Dysuria, No Frequency, No Incontinence, No Hematuria, No Retention, No Discharge, No Urgency, No Pain, No Flank Pain, No Other, No , No , No , No , No , No , No Musculoskeletal: No Gait Disturbance, No Joint Pain, No Joint Stiffness, No Joint Swelling, No Muscle Pain, No Muscular Weakness, No Pain In:, No Swelling In:, No Other Neurological: No Behavorial Changes, No Bowel/Bladder ControlChng, No Confus ion, No Dizziness, No Gait Disturbance, No Headaches, No Impaired Coord/balance, No Memory Loss, No Numbness/Tingling, No Seizures, No Speech Problems, No Tremors, No Visual Changes, No Weakness, No Other Skin: No Dry Skin, No Eczema, No Hair Changes, No Lumps, No Mole Changes, No Mottling, No Nail Changes, No Pruritus, No Rash, No Skin Lesion Changes, No Othe r, No Acne Physical Exam General: Alert, Cooperative, mild distress, moderate distress HEENT: EOMI, Mucous membr. moist/pink Lungs: Clear to auscultation, Normal air movement Heart: S1S2, no gallops, no murmurs Abdomen: Normal bowel sounds, Soft Rectal Exam: not examined Extremities: No cyanosis, No edema, Normal pulses Skin: No significant lesion Neuro: Normal speech, Normal tone, Sensation intact Psych/Mental Status: Mental status NL, Mood NL Vitals Vitals Vital Signs Date Time Temp Pulse Resp B/P (MAP) Pulse Ox O2 Delivery O2 Flow Rate FiO2 02/21/19 13:26 Room Air 4/22/19 10:47 99.5 89 16 114/65 (81) 99.5 02/21/19 08:30 100 Labs Labs Laboratory Tests Test 02/21/19 06:10 02/21/19 06:15 02/21/19 06:21 02/21/19 08:25 Urine Collection Type Unknown Urine Color Yellow Urine Clarity Clear Urine pH 8.5 Urine Specific [place] 1.025 Urine Protein Negative mg/dL (NEG-TRACE) Urine Glucose (UA) Negative mg/dL (NEG) Urine Ketones (Stick) Negative mg/dL (NEG) Urine Blood Moderate (NEG) Urine Nitrite Negative (NEG) Urine Bilirubin Negative (NEG) Urine Urobilinogen Dipstick 0.2 mg/dL (0.2 mg/dL) Urine Leukocyte Esterase Trace (NEG) Urine RBC 1-2 /HPF (0-2) Urine WBC Rare /HPF (0-4) Urine Squamous Epithelial Cells Many /LPF Urine Bacteria Few /HPF (0-FEW) White Blood Count 19.7 x10^3/uL (4.0-11.0) Red Blood Count 4.59 x10^6/uL (3.50-5.40) Hemoglobin 15.4 g/dL (12.0-15.5) Hematocrit 45.2 % (36.0-47.0) Mean Corpuscular Volume 99 fL (79-100) Mean Corpuscular Hemoglobin 34 pg (25-35) Mean Corpuscular Hemoglobin Concent 34 g/dL (31-37) Red Cell Distribution Width 13.3 % (11.5-14.5) Platelet Count 297 x10^3/uL (140-400) Neutrophils (%) (Auto) 87 % (31-73) Lymphocytes (%) (Auto) 9 % (24-48) Monocytes (%) (Auto) 4 % (0-9) Eosinophils (%) (Auto) 0 % (0-3) Basophils (%) (Auto) 0 % (0-3) Neutrophils # (Auto) 17.2 x10^3uL (1.8-7.7) Lymphocytes # (Auto) 1.7 x10^3/uL (1.0-4.8) Monocytes # (Auto) 0.8 x10^3/uL (0.0-1.1) Eosinophils # (Auto) 0.0 x10^3/uL (0.0-0.7) Basophils # (Auto) 0.0 x10^3/uL (0.0-0.2) Segmented Neutrophils % 71 % (35-66) Band Neutrophils % 22 % (0-9) Lymphocytes % 5 % (24-48) Monocytes % 1 % (0-10) Basophils % 1 % (0-3) Toxic Vacuolation Slight Platelet Estimate Adequate (ADEQUATE) Anisocytosis Slight Sodium Level 138 mmol/L (136-145) Potassium Level 3.6 mmol/L (3.5-5.1) Chloride Level 101 mmol/L (98-107) Carbon Dioxide Level 25 mmol/L (21-32) Anion Gap 12 (6-14) Blood Urea Nitrogen 11 mg/dL (7-20) Creatinine 0.7 mg/dL (0.6-1.0) Estimated GFR (Cockcroft-Gault) 94.2 BUN/Creatinine Ratio 16 (6-20) Glucose Level 154 mg/dL (70-99) Calcium Level 9.5 mg/dL (8.5-10.1) Total Bilirubin 0.4 mg/dL (0.2-1.0) Aspartate Amino Transf (AST/SGOT) 17 U/L (15-37) Alanine Aminotransferase (ALT/SGPT) 22 U/L (14-59) Alkaline Phosphatase 68 U/L (46-116) Total Protein 7.8 g/dL (6.4-8.2) Albumin 4.0 g/dL (3.4-5.0) Albumin/Globulin Ratio 1.1 (1.0-1.7) Lipase 208 U/L (73-393) Bedside Urine HCG, Qualitative Hcg negative (Negative) Lactic Acid Level 2.2 mmol/L (0.4-2.0) Laboratory Tests Test 02/21/19 06:10 02/21/19 06:15 02/21/19 06:21 02/21/19 08:25 Urine Collection Type Unknown Urine Color Yellow Urine Clarity Clear Urine pH 8.5 Urine Specific [place] 1.025 Urine Protein Negative mg/dL (NEG-TRACE) Urine Glucose (UA) Negative mg/dL (NEG) Urine Ketones (Stick) Negative mg/dL (NEG) Urine Blood Moderate (NEG) Urine Nitrite Negative (NEG) Urine Bilirubin Negative (NEG) Urine Urobilinogen Dipstick 0.2 mg/dL (0.2 mg/dL) Urine Leukocyte Esterase Trace (NEG) Urine RBC 1-2 /HPF (0-2) Urine WBC Rare /HPF (0-4) Urine Squamous Epithelial Cells Many /LPF Urine Bacteria Few /HPF (0-FEW) White Blood Count 19.7 x10^3/uL (4.0-11.0) Red Blood Count 4.59 x10^6/uL (3.50-5.40) Hemoglobin 15.4 g/dL (12.0-15.5) Hematocrit 45.2 % (36.0-47.0) Mean Corpuscular Volume 99 fL (79-100) Mean Corpuscular Hemoglobin 34 pg (25-35) Mean Corpuscular Hemoglobin Concent 34 g/dL (31-37) Red Cell Distribution Width 13.3 % (11.5-14.5) Platelet Count 297 x10^3/uL (140-400) Neutrophils (%) (Auto) 87 % (31-73) Lymphocytes (%) (Auto) 9 % (24-48) Monocytes (%) (Auto) 4 % (0-9) Eosinophils (%) (Auto) 0 % (0-3) Basophils (%) (Auto) 0 % (0-3) Neutrophils # (Auto) 17.2 x10^3uL (1.8-7.7) Lymphocytes # (Auto) 1.7 x10^3/uL (1.0-4.8) Monocytes # (Auto) 0.8 x10^3/uL (0.0-1.1) Eosinophils # (Auto) 0.0 x10^3/uL (0.0-0.7) Basophils # (Auto) 0.0 x10^3/uL (0.0-0.2) Segmented Neutrophils % 71 % (35-66) Band Neutrophils % 22 % (0-9) Lymphocytes % 5 % (24-48) Monocytes % 1 % (0-10) Basophils % 1 % (0-3) Toxic Vacuolation Slight Platelet Estimate Adequate (ADEQUATE) Anisocytosis Slight Sodium Level 138 mmol/L (136-145) Potassium Level 3.6 mmol/L (3.5-5.1) Chloride Level 101 mmol/L (98-107) Carbon Dioxide Level 25 mmol/L (21-32) Anion Gap 12 (6-14) Blood Urea Nitrogen 11 mg/dL (7-20) Creatinine 0.7 mg/dL (0.6-1.0) Estimated GFR (Cockcroft-Gault) 94.2 BUN/Creatinine Ratio 16 (6-20) Glucose Level 154 mg/dL (70-99) Calcium Level 9.5 mg/dL (8.5-10.1) Total Bilirubin 0.4 mg/dL (0.2-1.0) Aspartate Amino Transf (AST/SGOT) 17 U/L (15-37) Alanine Aminotransferase (ALT/SGPT) 22 U/L (14-59) Alkaline Phosphatase 68 U/L (46-116) Total Protein 7.8 g/dL (6.4-8.2) Albumin 4.0 g/dL (3.4-5.0) Albumin/Globulin Ratio 1.1 (1.0-1.7) Lipase 208 U/L (73-393) Bedside Urine HCG, Qualitative Hcg negative (Negative) Lactic Acid Level 2.2 mmol/L (0.4-2.0) VTE Prophylaxis Ordered VTE Prophylaxis Devices: No VTE Pharmacological Prophylaxi: Yes Assessment/Plan Assessment/Plan acute abdominal pain acute diarrhea colitis, possible infectious concern for ari, GI consult has ordered PeytonA MADELYN Aldridge MD Feb 21, 2019 14:48
[2019-02-21 14:57] VITALS: BP 89/45
[2019-02-21 19:00] VITALS: BP 100/59
[2019-02-21 23:00] VITALS: BP 95/56
[2019-02-22] MEDS: IV NORMAL SALINE 1000ML BAG 1,000 ML IV SCH ×3 (00:38→21:00)
[2019-02-22 03:00] VITALS: BP 99/57
[2019-02-22 05:14] LABS: HEMATOCRIT 38.9 % (36.0-47.0); HEMOGLOBIN 12.9 g/dL (12.0-15.5); RED BLOOD COUNT 3.95 x10^6/uL (3.50-5.40); RED CELL DISTRIBUTION WIDTH 13.2 % (11.5-14.5); WHITE BLOOD COUNT 8.8 x10^3/uL (4.0-11.0)
[2019-02-22] MEDS: PANTOPRAZOLE IV PUSH 40 MG VIAL. IVP SCH (05:27)
[2019-02-22 05:30] LABS: ALBUMIN 2.7 g/dL (3.4-5.0); ALBUMIN/GLOBULIN RATIO 0.9 (1.0-1.7); CALCIUM 7.8 mg/dL (8.5-10.1); CREATININE 0.5 mg/dL (0.6-1.0); GFR 138.8; TOTAL BILIRUBIN 0.3 mg/dL (0.2-1.0); TOTAL PROTEIN 5.7 g/dL (6.4-8.2)
[2019-02-22 05:35] LABS: POTASSIUM 2.8 mmol/L (3.5-5.1)
[2019-02-22 07:00] VITALS: BP_SYST 102; BP_SYST 108; BP_DIAS 54; BP_DIAS 70
[2019-02-22] MEDS ORDERED: POTASSIUM CHLORIDE 20 MEQ TABLET.ER. PO ONE ×2 (09:00→11:00)
--- NOTE | 2019-02-22 09:27 | PDOC ---
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 02/22/19 0927: SURGICAL PROGRESS NOTE Subjective some diarrhea now no abdominal pain no nausea Vital Signs Vital Signs Date Time Temp Pulse Resp B/P (MAP) Pulse Ox O2 Delivery O2 Flow Rate FiO2 02/22/19 07:00 97.8 67 16 102/54 (70) 97 97.8 02/22/19 03:00 Room Air I&O Intake and Output 02/22/19 06:59 Intake Total 1120 ml Balance 1120 ml Intake Oral 120 ml IV Total 1000 ml # Voids 3 General: Alert, Oriented X3, Cooperative, No acute distress Abdomen: Soft, No tenderness Labs Laboratory Tests Test 02/21/19 06:10 02/21/19 06:15 02/21/19 06:21 02/21/19 08:25 Urine Collection Type Unknown Urine Color Yellow Urine Clarity Clear Urine pH 8.5 Urine Specific [place] 1.025 Urine Protein Negative mg/dL (NEG-TRACE) Urine Glucose (UA) Negative mg/dL (NEG) Urine Ketones (Stick) Negative mg/dL (NEG) Urine Blood Moderate (NEG) Urine Nitrite Negative (NEG) Urine Bilirubin Negative (NEG) Urine Urobilinogen Dipstick 0.2 mg/dL (0.2 mg/dL) Urine Leukocyte Esterase Trace (NEG) Urine RBC 1-2 /HPF (0-2) Urine WBC Rare /HPF (0-4) Urine Squamous Epithelial Cells Many /LPF Urine Bacteria Few /HPF (0-FEW) White Blood Count 19.7 x10^3/uL (4.0-11.0) Red Blood Count 4.59 x10^6/uL (3.50-5.40) Hemoglobin 15.4 g/dL (12.0-15.5) Hematocrit 45.2 % (36.0-47.0) Mean Corpuscular Volume 99 fL (79-100) Mean Corpuscular Hemoglobin 34 pg (25-35) Mean Corpuscular Hemoglobin Concent 34 g/dL (31-37) Red Cell Distribution Width 13.3 % (11.5-14.5) Platelet Count 297 x10^3/uL (140-400) Neutrophils (%) (Auto) 87 % (31-73) Lymphocytes (%) (Auto) 9 % (24-48) Monocytes (%) (Auto) 4 % (0-9) Eosinophils (%) (Auto) 0 % (0-3) Basophils (%) (Auto) 0 % (0-3) Neutrophils # (Auto) 17.2 x10^3uL (1.8-7.7) Lymphocytes # (Auto) 1.7 x10^3/uL (1.0-4.8) Monocytes # (Auto) 0.8 x10^3/uL (0.0-1.1) Eosinophils # (Auto) 0.0 x10^3/uL (0.0-0.7) Basophils # (Auto) 0.0 x10^3/uL (0.0-0.2) Segmented Neutrophils % 71 % (35-66) Band Neutrophils % 22 % (0-9) Lymphocytes % 5 % (24-48) Monocytes % 1 % (0-10) Basophils % 1 % (0-3) Toxic Vacuolation Slight Platelet Estimate Adequate (ADEQUATE) Anisocytosis Slight Sodium Level 138 mmol/L (136-145) Potassium Level 3.6 mmol/L (3.5-5.1) Chloride Level 101 mmol/L (98-107) Carbon Dioxide Level 25 mmol/L (21-32) Anion Gap 12 (6-14) Blood Urea Nitrogen 11 mg/dL (7-20) Creatinine 0.7 mg/dL (0.6-1.0) Estimated GFR (Cockcroft-Gault) 94.2 BUN/Creatinine Ratio 16 (6-20) Glucose Level 154 mg/dL (70-99) Calcium Level 9.5 mg/dL (8.5-10.1) Total Bilirubin 0.4 mg/dL (0.2-1.0) Aspartate Amino Transf (AST/SGOT) 17 U/L (15-37) Alanine Aminotransferase (ALT/SGPT) 22 U/L (14-59) Alkaline Phosphatase 68 U/L (46-116) Total Protein 7.8 g/dL (6.4-8.2) Albumin 4.0 g/dL (3.4-5.0) Albumin/Globulin Ratio 1.1 (1.0-1.7) Lipase 208 U/L (73-393) Bedside Urine HCG, Qualitative Hcg negative (Negative) Lactic Acid Level 2.2 mmol/L (0.4-2.0) Test 02/22/19 04:30 White Blood Count 8.8 x10^3/uL (4.0-11.0) Red Blood Count 3.95 x10^6/uL (3.50-5.40) Hemoglobin 12.9 g/dL (12.0-15.5) Hematocrit 38.9 % (36.0-47.0) Mean Corpuscular Volume 99 fL (79-100) Mean Corpuscular Hemoglobin 33 pg (25-35) Mean Corpuscular Hemoglobin Concent 33 g/dL (31-37) Red Cell Distribution Width 13.2 % (11.5-14.5) Platelet Count 225 x10^3/uL (140-400) Sodium Level 142 mmol/L (136-145) Potassium Level 2.8 mmol/L (3.5-5.1) Chloride Level 108 mmol/L (98-107) Carbon Dioxide Level 24 mmol/L (21-32) Anion Gap 10 (6-14) Blood Urea Nitrogen 4 mg/dL (7-20) Creatinine 0.5 mg/dL (0.6-1.0) Estimated GFR (Cockcroft-Gault) 138.8 BUN/Creatinine Ratio 8 (6-20) Glucose Level 96 mg/dL (70-99) Calcium Level 7.8 mg/dL (8.5-10.1) Total Bilirubin 0.3 mg/dL (0.2-1.0) Aspartate Amino Transf (AST/SGOT) 12 U/L (15-37) Alanine Aminotransferase (ALT/SGPT) 14 U/L (14-59) Alkaline Phosphatase 45 U/L (46-116) Total Protein 5.7 g/dL (6.4-8.2) Albumin 2.7 g/dL (3.4-5.0) Albumin/Globulin Ratio 0.9 (1.0-1.7) Laboratory Tests Test 02/22/19 04:30 White Blood Count 8.8 x10^3/uL (4.0-11.0) Red Blood Count 3.95 x10^6/uL (3.50-5.40) Hemoglobin 12.9 g/dL (12.0-15.5) Hematocrit 38.9 % (36.0-47.0) Mean Corpuscular Volume 99 fL (79-100) Mean Corpuscular Hemoglobin 33 pg (25-35) Mean Corpuscular Hemoglobin Concent 33 g/dL (31-37) Red Cell Distribution Width 13.2 % (11.5-14.5) Platelet Count 225 x10^3/uL (140-400) Sodium Level 142 mmol/L (136-145) Potassium Level 2.8 mmol/L (3.5-5.1) Chloride Level 108 mmol/L (98-107) Carbon Dioxide Level 24 mmol/L (21-32) Anion Gap 10 (6-14) Blood Urea Nitrogen 4 mg/dL (7-20) Creatinine 0.5 mg/dL (0.6-1.0) Estimated GFR (Cockcroft-Gault) 138.8 BUN/Creatinine Ratio 8 (6-20) Glucose Level 96 mg/dL (70-99) Calcium Level 7.8 mg/dL (8.5-10.1) Total Bilirubin 0.3 mg/dL (0.2-1.0) Aspartate Amino Transf (AST/SGOT) 12 U/L (15-37) Alanine Aminotransferase (ALT/SGPT) 14 U/L (14-59) Alkaline Phosphatase 45 U/L (46-116) Total Protein 5.7 g/dL (6.4-8.2) Albumin 2.7 g/dL (3.4-5.0) Albumin/Globulin Ratio 0.9 (1.0-1.7) Problem List Problems Medical Problems: (1) Acute gastroenteritis Status: Acute (2) Cholecystitis Status: Acute (3) Colitis Status: Acute (4) Sepsis Status: Acute Assessment/Plan enterocolitis cholelithiasis no current surgical plans MARYAM ISLAS MD 02/22/19 1654: SURGICAL PROGRESS NOTE Assessment/Plan Pt seen and examined. agree with Ms. Gonzalez's note Pt without c/o today abd soft cont supportive care no surgical plans. 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 Feb 22, 2019 09:27 MARYAM ISLAS MD Feb 22, 2019 16:54
[2019-02-22] MEDS ORDERED: SINCALIDE 1.18 MCG in IV NORMAL SALINE 50ML 30 ML IV ONE (10:00)
[2019-02-22 11:00] VITALS: BP 111/63
--- NOTE | 2019-02-22 11:20 | PDOC ---
PROGRESS NOTES Chief Complaint Chief Complaint CC: Abdominal pain with Nausea/Vomiting/Diarrhea History of Present Illness History of Present Illness Pt seen and examined, pt's family at bedside, Malay speaking Pt just returning from HIDA scan, will await results. Vitals Vitals Vital Signs Date Time Temp Pulse Resp B/P (MAP) Pulse Ox O2 Delivery O2 Flow Rate FiO2 02/22/19 07:45 Room Air 02/22/19 07:00 97.8 67 16 102/54 (70) 97 97.8 Physical Exam General: Alert, Oriented X3, Cooperative, No acute distress Heart: Regular rate, Normal S1, Normal S2, No murmurs Lungs: Clear, Other (No crackels or wheezing) Abdomen: Soft, No tenderness Extremities: No cyanosis, No edema, Normal pulses Skin: No rashes, No breakdown, No significant lesion Labs LABS Laboratory Tests Test 02/22/19 04:30 White Blood Count 8.8 x10^3/uL (4.0-11.0) Red Blood Count 3.95 x10^6/uL (3.50-5.40) Hemoglobin 12.9 g/dL (12.0-15.5) Hematocrit 38.9 % (36.0-47.0) Mean Corpuscular Volume 99 fL (79-100) Mean Corpuscular Hemoglobin 33 pg (25-35) Mean Corpuscular Hemoglobin Concent 33 g/dL (31-37) Red Cell Distribution Width 13.2 % (11.5-14.5) Platelet Count 225 x10^3/uL (140-400) Sodium Level 142 mmol/L (136-145) Potassium Level 2.8 mmol/L (3.5-5.1) Chloride Level 108 mmol/L (98-107) Carbon Dioxide Level 24 mmol/L (21-32) Anion Gap 10 (6-14) Blood Urea Nitrogen 4 mg/dL (7-20) Creatinine 0.5 mg/dL (0.6-1.0) Estimated GFR (Cockcroft-Gault) 138.8 BUN/Creatinine Ratio 8 (6-20) Glucose Level 96 mg/dL (70-99) Calcium Level 7.8 mg/dL (8.5-10.1) Total Bilirubin 0.3 mg/dL (0.2-1.0) Aspartate Amino Transf (AST/SGOT) 12 U/L (15-37) Alanine Aminotransferase (ALT/SGPT) 14 U/L (14-59) Alkaline Phosphatase 45 U/L (46-116) Total Protein 5.7 g/dL (6.4-8.2) Albumin 2.7 g/dL (3.4-5.0) Albumin/Globulin Ratio 0.9 (1.0-1.7) Review of Systems Review of Systems Denies F/C Denies N/V Assessment and Plan Assessmemt and Plan Assessment Abdominal pain, N/V/D Cholelithiasis, U/s revealing 4cm gallstone w/o CBD dilation Enteritis and Colitis on CT findings, nonspecific Sepsis Plan: Rocephin 1gm q24h KCL ordered HIDA scan results pending, appreciate GI recommendations No surgery at this time, appreciate recommendations NS @100 Start CLD Protonix 40 Pain control Recheck labs Home meds Problems Medical Problems: (1) Acute gastroenteritis Status: Acute (2) Cholecystitis Status: Acute (3) Colitis Status: Acute (4) Sepsis Status: Acute Comment Review of Relevant I have reviewed the following items kehinde (where applicable) has been applied. Labs Laboratory Tests Test 02/21/19 06:10 02/21/19 06:15 02/21/19 06:21 02/21/19 08:25 Urine Collection Type Unknown Urine Color Yellow Urine Clarity Clear Urine pH 8.5 Urine Specific Rogers 1.025 Urine Protein Negative mg/dL (NEG-TRACE) Urine Glucose (UA) Negative mg/dL (NEG) Urine Ketones (Stick) Negative mg/dL (NEG) Urine Blood Moderate (NEG) Urine Nitrite Negative (NEG) Urine Bilirubin Negative (NEG) Urine Urobilinogen Dipstick 0.2 mg/dL (0.2 mg/dL) Urine Leukocyte Esterase Trace (NEG) Urine RBC 1-2 /HPF (0-2) Urine WBC Rare /HPF (0-4) Urine Squamous Epithelial Cells Many /LPF Urine Bacteria Few /HPF (0-FEW) White Blood Count 19.7 x10^3/uL (4.0-11.0) Red Blood Count 4.59 x10^6/uL (3.50-5.40) Hemoglobin 15.4 g/dL (12.0-15.5) Hematocrit 45.2 % (36.0-47.0) Mean Corpuscular Volume 99 fL (79-100) Mean Corpuscular Hemoglobin 34 pg (25-35) Mean Corpuscular Hemoglobin Concent 34 g/dL (31-37) Red Cell Distribution Width 13.3 % (11.5-14.5) Platelet Count 297 x10^3/uL (140-400) Neutrophils (%) (Auto) 87 % (31-73) Lymphocytes (%) (Auto) 9 % (24-48) Monocytes (%) (Auto) 4 % (0-9) Eosinophils (%) (Auto) 0 % (0-3) Basophils (%) (Auto) 0 % (0-3) Neutrophils # (Auto) 17.2 x10^3uL (1.8-7.7) Lymphocytes # (Auto) 1.7 x10^3/uL (1.0-4.8) Monocytes # (Auto) 0.8 x10^3/uL (0.0-1.1) Eosinophils # (Auto) 0.0 x10^3/uL (0.0-0.7) Basophils # (Auto) 0.0 x10^3/uL (0.0-0.2) Segmented Neutrophils % 71 % (35-66) Band Neutrophils % 22 % (0-9) Lymphocytes % 5 % (24-48) Monocytes % 1 % (0-10) Basophils % 1 % (0-3) Toxic Vacuolation Slight Platelet Estimate Adequate (ADEQUATE) Anisocytosis Slight Sodium Level 138 mmol/L (136-145) Potassium Level 3.6 mmol/L (3.5-5.1) Chloride Level 101 mmol/L (98-107) Carbon Dioxide Level 25 mmol/L (21-32) Anion Gap 12 (6-14) Blood Urea Nitrogen 11 mg/dL (7-20) Creatinine 0.7 mg/dL (0.6-1.0) Estimated GFR (Cockcroft-Gault) 94.2 BUN/Creatinine Ratio 16 (6-20) Glucose Level 154 mg/dL (70-99) Calcium Level 9.5 mg/dL (8.5-10.1) Total Bilirubin 0.4 mg/dL (0.2-1.0) Aspartate Amino Transf (AST/SGOT) 17 U/L (15-37) Alanine Aminotransferase (ALT/SGPT) 22 U/L (14-59) Alkaline Phosphatase 68 U/L (46-116) Total Protein 7.8 g/dL (6.4-8.2) Albumin 4.0 g/dL (3.4-5.0) Albumin/Globulin Ratio 1.1 (1.0-1.7) Lipase 208 U/L (73-393) Bedside Urine HCG, Qualitative Hcg negative (Negative) Lactic Acid Level 2.2 mmol/L (0.4-2.0) Test 02/22/19 04:30 White Blood Count 8.8 x10^3/uL (4.0-11.0) Red Blood Count 3.95 x10^6/uL (3.50-5.40) Hemoglobin 12.9 g/dL (12.0-15.5) Hematocrit 38.9 % (36.0-47.0) Mean Corpuscular Volume 99 fL (79-100) Mean Corpuscular Hemoglobin 33 pg (25-35) Mean Corpuscular Hemoglobin Concent 33 g/dL (31-37) Red Cell Distribution Width 13.2 % (11.5-14.5) Platelet Count 225 x10^3/uL (140-400) Sodium Level 142 mmol/L (136-145) Potassium Level 2.8 mmol/L (3.5-5.1) Chloride Level 108 mmol/L (98-107) Carbon Dioxide Level 24 mmol/L (21-32) Anion Gap 10 (6-14) Blood Urea Nitrogen 4 mg/dL (7-20) Creatinine 0.5 mg/dL (0.6-1.0) Estimated GFR (Cockcroft-Gault) 138.8 BUN/Creatinine Ratio 8 (6-20) Glucose Level 96 mg/dL (70-99) Calcium Level 7.8 mg/dL (8.5-10.1) Total Bilirubin 0.3 mg/dL (0.2-1.0) Aspartate Amino Transf (AST/SGOT) 12 U/L (15-37) Alanine Aminotransferase (ALT/SGPT) 14 U/L (14-59) Alkaline Phosphatase 45 U/L (46-116) Total Protein 5.7 g/dL (6.4-8.2) Albumin 2.7 g/dL (3.4-5.0) Albumin/Globulin Ratio 0.9 (1.0-1.7) Laboratory Tests Test 02/22/19 04:30 White Blood Count 8.8 x10^3/uL (4.0-11.0) Red Blood Count 3.95 x10^6/uL (3.50-5.40) Hemoglobin 12.9 g/dL (12.0-15.5) Hematocrit 38.9 % (36.0-47.0) Mean Corpuscular Volume 99 fL (79-100) Mean Corpuscular Hemoglobin 33 pg (25-35) Mean Corpuscular Hemoglobin Concent 33 g/dL (31-37) Red Cell Distribution Width 13.2 % (11.5-14.5) Platelet Count 225 x10^3/uL (140-400) Sodium Level 142 mmol/L (136-145) Potassium Level 2.8 mmol/L (3.5-5.1) Chloride Level 108 mmol/L (98-107) Carbon Dioxide Level 24 mmol/L (21-32) Anion Gap 10 (6-14) Blood Urea Nitrogen 4 mg/dL (7-20) Creatinine 0.5 mg/dL (0.6-1.0) Estimated GFR (Cockcroft-Gault) 138.8 BUN/Creatinine Ratio 8 (6-20) Glucose Level 96 mg/dL (70-99) Calcium Level 7.8 mg/dL (8.5-10.1) Total Bilirubin 0.3 mg/dL (0.2-1.0) Aspartate Amino Transf (AST/SGOT) 12 U/L (15-37) Alanine Aminotransferase (ALT/SGPT) 14 U/L (14-59) Alkaline Phosphatase 45 U/L (46-116) Total Protein 5.7 g/dL (6.4-8.2) Albumin 2.7 g/dL (3.4-5.0) Albumin/Globulin Ratio 0.9 (1.0-1.7) Microbiology 02/21/19 Blood Culture - Preliminary, Resulted NO GROWTH AFTER 1 DAY Medications Current Medications Sodium Chloride 1,000 ml @ 1,000 mls/hr Q1H IV Last administered on 02/21/19at 06:41; Start 02/21/19 at 06:30; Stop 02/21/19 at 07:29; Status DC Ondansetron HCl (Zofran) 4 mg 1X ONCE IV Last administered on 02/21/19at 06:39; Start 02/21/19 at 06:30; Stop 02/21/19 at 06:31; Status DC Famotidine (Pepcid Vial) 20 mg 1X ONCE IVP Last administered on 02/21/19 06:41; Start 02/21/19 at 06:30; Stop 02/21/19 at 06:31; Status DC Fentanyl Citrate (Fentanyl 2ml Vial) 50 mcg 1X ONCE IV ; Start 02/21/19 at 07:30; Stop 02/21/19 at 07:31; Status DC Sodium Chloride 1,000 ml @ 1,000 mls/hr 1X ONCE IV Last administered on 02/21/19at 09:41; Start 02/21/19 at 08:15; Stop 02/21/19 at 09:14; Status DC Iohexol (Omnipaque 300 Mg/ml) 75 ml 1X ONCE IV Last administered on 02/21/19at 08:30; Start 02/21/19 at 08:30; Stop 02/21/19 at 08:31; Status DC Info (CONTRAST GIVEN -- Rx MONITORING) 1 each PRN DAILY PRN MC SEE COMMENTS; Start 02/21/19 at 08:30; Stop 02/23/19 at 08:29 Sodium Chloride 1,000 ml @ 150 mls/hr Q6H40M IV Last administered on 02/21/19at 12:51; Start 02/21/19 at 08:43; Stop 02/21/19 at 17:36; Status DC Ceftriaxone Sodium (Rocephin) 1 gm 1X ONCE IVP Last administered on 02/21/19at 09:41; Start 02/21/19 at 09:15; Stop 02/21/19 at 09:16; Status DC Sodium Chloride 1,000 ml @ 1,000 mls/hr 1X ONCE IV ; Start 02/21/19 at 09:15; Stop 02/21/19 at 10:14; Status DC Fentanyl Citrate (Fentanyl 2ml Vial) 50 mcg PRN Q2HR PRN IV PAIN; Start 02/21/19 at 13:00 Oxycodone/ Acetaminophen (Percocet 5/325) 1 tab PRN Q4HRS PRN PO PAIN Last administered on 02/21/19at 13:26; Start 02/21/19 at 13:00 Pantoprazole Sodium (PROTONIX VIAL for IV PUSH) 40 mg DAILYAC IVP Last administered on 02/22/19at 05:27; Start 02/21/19 at 14:00 Sodium Chloride 1,000 ml @ 100 mls/hr Q10H IV Last administered on 02/22/19at 00:38; Start 02/21/19 at 15:00 Sodium Chloride 1,000 ml @ 1,000 mls/hr 1X ONCE IV Last administered on 02/21/19at 15:00; Start 02/21/19 at 15:00; Stop 02/21/19 at 15:59; Status DC Potassium Chloride (Klor-Con) 40 meq 1X ONCE PO ; Start 02/22/19 at 09:00; Stop 02/22/19 at 09:03; Status DC Potassium Chloride (Klor-Con) 20 meq 1X ONCE PO ; Start 02/22/19 at 11:00; Stop 02/22/19 at 11:01; Status DC Sincalide 1.18 mcg/Sodium Chloride 30 ml @ 120 mls/hr 1X ONCE IV Last administered on 02/22/19at 10:02; Start 02/22/19 at 10:00; Stop 02/22/19 at 10:14; Status DC Vitals/I & O Vital Sign - Last 24 Hours 02/21/19 02/21/19 02/21/19 02/21/19 13:26 14:26 14:57 19:00 Temp 98.2 98.9 98.2 98.9 Pulse 85 83 Resp 12 12 B/P (MAP) 89/45 (60) 100/59 (73) Pulse Ox 95 98 O2 Delivery Room Air Room Air Room Air Room Air 02/21/19 02/21/19 02/22/19 02/22/19 20:00 23:00 03:00 07:00 Temp 98.5 98.0 97.8 98.5 98.0 97.8 Pulse 72 69 67 Resp 12 12 16 B/P (MAP) 95/56 (69) 99/57 (71) 102/54 (70) Pulse Ox 98 98 97 O2 Delivery Room Air Room Air Room Air 02/22/19 07:45 O2 Delivery Room Air Intake and Output 02/21/19 02/21/19 02/22/19 15:00 23:00 07:00 Intake Total 1000 ml 120 ml Balance 1000 ml 120 ml ALBANIA VEGA III DO Feb 22, 2019 11:20
--- NOTE | 2019-02-22 11:53 | PDOC ---
Subjective: Subjective: Denies pain and n/v. "A little" diarrhea. Objective: Objective: C Diff and stool culture uncollected. Dr. Aguirre's students asking about discharge. Vital Signs: Vital Signs Date Time Temp Pulse Resp B/P (MAP) Pulse Ox O2 Delivery O2 Flow Rate FiO2 02/22/19 07:45 Room Air 02/22/19 07:00 97.8 67 16 102/54 (70) 97 97.8 Labs: Laboratory Tests Test 02/22/19 04:30 White Blood Count 8.8 x10^3/uL Red Blood Count 3.95 x10^6/uL Hemoglobin 12.9 g/dL Hematocrit 38.9 % Mean Corpuscular Volume 99 fL Mean Corpuscular Hemoglobin 33 pg Mean Corpuscular Hemoglobin Concent 33 g/dL Red Cell Distribution Width 13.2 % Platelet Count 225 x10^3/uL Sodium Level 142 mmol/L Potassium Level 2.8 mmol/L Chloride Level 108 mmol/L Carbon Dioxide Level 24 mmol/L Anion Gap 10 Blood Urea Nitrogen 4 mg/dL Creatinine 0.5 mg/dL Estimated GFR (Cockcroft-Gault) 138.8 BUN/Creatinine Ratio 8 Glucose Level 96 mg/dL Calcium Level 7.8 mg/dL Total Bilirubin 0.3 mg/dL Aspartate Amino Transf (AST/SGOT) 12 U/L Alanine Aminotransferase (ALT/SGPT) 14 U/L Alkaline Phosphatase 45 U/L Total Protein 5.7 g/dL Albumin 2.7 g/dL Albumin/Globulin Ratio 0.9 Imaging: HIDA 02/22 pending PE: GEN: NAD LUNGS: CTAB HEART: RRR ABD: NABS, S/ND/NT NEURO/PSYCH: A & O 3 A/P: Recurrent epigastric/RUQ pain, vomiting, diarrhea Cholelithiasis - no surgical plans Abnormal CT - "nonspecific enterocolitis" Hypokalemia - per Dr. Aguirre -- HIDA pending. Okay to ADAT. Stool tests uncollected - reviewed w/ RN - was unaware of any diarrhea. Primary team asking about discharge - would send w/ PPI as a trial. STEFFI DINH Feb 22, 2019 11:52
[2019-02-22] MEDS: cefTRIAXone IV Push 1 GM VIAL. IVP SCH (12:06)
--- NOTE | 2019-02-22 14:34 | NUR ---
SW following for discharge planning. Discussed with RN, pt is from home with family, and is Palestinian speaking. Pt had test and scans this morning, and is needing a stool sample to culture. Pt on clears and IV Rocephin currently. SW to meet with pt to give self pay resource packet. SW will continue to follow.
--- NOTE | 2019-02-22 14:45 | RAD ---
Examination: NM HEPATOBILIARY SCAN W PHARM History: abd. pain, n& v x 1 day. sono + for gall stone. Comparison/Correlation: 02/21/2019 CT abdomen and pelvis with contrast Findings: 5 mCi technetium 99m mebrofenin was intravenously administered for hepatobiliary scintigraphy. Uptake of radiotracer by liver is normal. Radiotracer present within small bowel at 15 minutes. Radiotracer is present within the gallbladder also at 15 minutes. Following 1.18 mcg sincalide, gallbladder ejection fraction at 30 minutes is identified to be 3 percent. No biliary dilatation. Impression: Very low gallbladder ejection fraction which may represent chronic cholecystitis in the appropriate clinical setting. Electronically signed by: Idris Solorio MD (02/22/2019 2:43 PM) [facility]
[2019-02-22 15:00] VITALS: BP 100/60
[2019-02-22 19:00] VITALS: BP 102/54
[2019-02-22] MEDS: LACTOBACILLUS RHAMNOSUS GG 1 CAPSULE. PO SCH (22:23)
[2019-02-22 23:00] VITALS: BP 99/48
--- NOTE | 2019-02-22 23:08 | NUR ---
Pt.'s IV infiltrated. Fluids were stopped at this time. Pt. tolerating PO well without any nausea/vomiting.
[2019-02-23 03:00] VITALS: BP 84/41
[2019-02-23 04:55] LABS: BASO % 0 % (0-3); EOS # 0.2 x10^3/uL (0.0-0.7); EOS % 2 % (0-3); HEMATOCRIT 37.7 % (36.0-47.0); HEMOGLOBIN 13.1 g/dL (12.0-15.5); LYMPH # 2.1 x10^3/uL (1.0-4.8); LYMPH % 29 % (24-48); MEAN CORPUSCULAR HEMOGLOBIN 34 pg (25-35); MEAN CORPUSCULAR HGB CONC 35 g/dL (31-37); MEAN CORPUSCULAR VOLUME 98 fL (79-100); MONO # 0.5 x10^3/uL (0.0-1.1); MONO % 7 % (0-9); NEUT # 4.6 x10^3uL (1.8-7.7); NEUT % 62 % (31-73); PLATELET COUNT 226 x10^3/uL (140-400); RED BLOOD COUNT 3.85 x10^6/uL (3.50-5.40); WHITE BLOOD COUNT 7.5 x10^3/uL (4.0-11.0)
[2019-02-23 05:12] LABS: CALCIUM 8.8 mg/dL (8.5-10.1); CREATININE 0.6 mg/dL (0.6-1.0); GFR 112.5; POTASSIUM 3.9 mmol/L (3.5-5.1)
[2019-02-23 06:36] VITALS: BP 94/54
[2019-02-23] MEDS: IV NORMAL SALINE 1000ML BAG 1,000 ML IV SCH (06:36)
[2019-02-23] MEDS ORDERED: PANTOPRAZOLE 40 MG TABLET.DR. PO SCH (07:30)
[2019-02-23 07:54] VITALS: BP 94/49
[2019-02-23] MEDS: LACTOBACILLUS RHAMNOSUS GG 1 CAPSULE. PO SCH (08:04)
--- NOTE | 2019-02-23 10:00 | PDOC ---
MORENITA GONZALEZ [facility] 02/23/19 1000: SURGICAL PROGRESS NOTE Subjective no pain no diarrhea since yesterday am tolerating diet Vital Signs Vital Signs Date Time Temp Pulse Resp B/P (MAP) Pulse Ox O2 Delivery O2 Flow Rate FiO2 02/23/19 07:54 98.3 68 16 94/49 (64) 99 Room Air 98.3 I&O Intake and Output 02/23/19 06:59 Intake Total 240 ml Balance 240 ml Intake Oral 240 ml # Voids 3 General: Alert, Oriented X3, Cooperative, No acute distress Abdomen: Soft, No tenderness Labs Laboratory Tests Test 02/22/19 04:30 02/23/19 04:05 White Blood Count 8.8 x10^3/uL (4.0-11.0) 7.5 x10^3/uL (4.0-11.0) Red Blood Count 3.95 x10^6/uL (3.50-5.40) 3.85 x10^6/uL (3.50-5.40) Hemoglobin 12.9 g/dL (12.0-15.5) 13.1 g/dL (12.0-15.5) Hematocrit 38.9 % (36.0-47.0) 37.7 % (36.0-47.0) Mean Corpuscular Volume 99 fL (79-100) 98 fL (79-100) Mean Corpuscular Hemoglobin 33 pg (25-35) 34 pg (25-35) Mean Corpuscular Hemoglobin Concent 33 g/dL (31-37) 35 g/dL (31-37) Red Cell Distribution Width 13.2 % (11.5-14.5) 13.0 % (11.5-14.5) Platelet Count 225 x10^3/uL (140-400) 226 x10^3/uL (140-400) Sodium Level 142 mmol/L (136-145) 143 mmol/L (136-145) Potassium Level 2.8 mmol/L (3.5-5.1) 3.9 mmol/L (3.5-5.1) Chloride Level 108 mmol/L (98-107) 107 mmol/L (98-107) Carbon Dioxide Level 24 mmol/L (21-32) 27 mmol/L (21-32) Anion Gap 10 (6-14) 9 (6-14) Blood Urea Nitrogen 4 mg/dL (7-20) 4 mg/dL (7-20) Creatinine 0.5 mg/dL (0.6-1.0) 0.6 mg/dL (0.6-1.0) Estimated GFR (Cockcroft-Gault) 138.8 112.5 BUN/Creatinine Ratio 8 (6-20) Glucose Level 96 mg/dL (70-99) 89 mg/dL (70-99) Calcium Level 7.8 mg/dL (8.5-10.1) 8.8 mg/dL (8.5-10.1) Total Bilirubin 0.3 mg/dL (0.2-1.0) Aspartate Amino Transf (AST/SGOT) 12 U/L (15-37) Alanine Aminotransferase (ALT/SGPT) 14 U/L (14-59) Alkaline Phosphatase 45 U/L (46-116) Total Protein 5.7 g/dL (6.4-8.2) Albumin 2.7 g/dL (3.4-5.0) Albumin/Globulin Ratio 0.9 (1.0-1.7) Neutrophils (%) (Auto) 62 % (31-73) Lymphocytes (%) (Auto) 29 % (24-48) Monocytes (%) (Auto) 7 % (0-9) Eosinophils (%) (Auto) 2 % (0-3) Basophils (%) (Auto) 0 % (0-3) Neutrophils # (Auto) 4.6 x10^3uL (1.8-7.7) Lymphocytes # (Auto) 2.1 x10^3/uL (1.0-4.8) Monocytes # (Auto) 0.5 x10^3/uL (0.0-1.1) Eosinophils # (Auto) 0.2 x10^3/uL (0.0-0.7) Basophils # (Auto) 0.0 x10^3/uL (0.0-0.2) Laboratory Tests Test 02/23/19 04:05 White Blood Count 7.5 x10^3/uL (4.0-11.0) Red Blood Count 3.85 x10^6/uL (3.50-5.40) Hemoglobin 13.1 g/dL (12.0-15.5) Hematocrit 37.7 % (36.0-47.0) Mean Corpuscular Volume 98 fL (79-100) Mean Corpuscular Hemoglobin 34 pg (25-35) Mean Corpuscular Hemoglobin Concent 35 g/dL (31-37) Red Cell Distribution Width 13.0 % (11.5-14.5) Platelet Count 226 x10^3/uL (140-400) Neutrophils (%) (Auto) 62 % (31-73) Lymphocytes (%) (Auto) 29 % (24-48) Monocytes (%) (Auto) 7 % (0-9) Eosinophils (%) (Auto) 2 % (0-3) Basophils (%) (Auto) 0 % (0-3) Neutrophils # (Auto) 4.6 x10^3uL (1.8-7.7) Lymphocytes # (Auto) 2.1 x10^3/uL (1.0-4.8) Monocytes # (Auto) 0.5 x10^3/uL (0.0-1.1) Eosinophils # (Auto) 0.2 x10^3/uL (0.0-0.7) Basophils # (Auto) 0.0 x10^3/uL (0.0-0.2) Sodium Level 143 mmol/L (136-145) Potassium Level 3.9 mmol/L (3.5-5.1) Chloride Level 107 mmol/L (98-107) Carbon Dioxide Level 27 mmol/L (21-32) Anion Gap 9 (6-14) Blood Urea Nitrogen 4 mg/dL (7-20) Creatinine 0.6 mg/dL (0.6-1.0) Estimated GFR (Cockcroft-Gault) 112.5 Glucose Level 89 mg/dL (70-99) Calcium Level 8.8 mg/dL (8.5-10.1) Problem List Problems Medical Problems: (1) Acute gastroenteritis Status: Acute (2) Cholecystitis Status: Acute (3) Colitis Status: Acute (4) Sepsis Status: Acute Assessment/Plan improved noted low EF on HIDA, however appears asymptomatic will review with MARYAM Miller MD 02/23/19 4780: SURGICAL PROGRESS NOTE Assessment/Plan Pt seen and examined. Agree with Ms. Gonzalez's note Pt without c/o, denies pain, luis antonio PO well abd soft, ND, NTTP OK to d/c appears to be clinically improved. Would consider cholecystectomy electively if pain reoccurs and enteritis resolved. MORENITA GONZALEZ [facility] Feb 23, 2019 10:00 MARYAM ISLAS MD Feb 23, 2019 13:44
[2019-02-23 11:00] VITALS: BP 106/58
[2019-02-23] MEDS: cefTRIAXone IV Push 1 GM VIAL. IVP SCH (12:13)
--- NOTE | 2019-02-23 12:37 | PDOC ---
PROGRESS NOTES Chief Complaint Chief Complaint CC: Abdominal pain with Nausea/Vomiting/Diarrhea History of Present Illness History of Present Illness Pt seen and examined, Pt desiring d/c, Hebrew speaking Tolerating diet No new complaints Vitals Vitals Vital Signs Date Time Temp Pulse Resp B/P (MAP) Pulse Ox O2 Delivery O2 Flow Rate FiO2 02/23/19 11:00 98.3 61 16 106/58 (74) 100 Room Air 98.3 Physical Exam General: Alert, Oriented X3, Cooperative, No acute distress Heart: Regular rate, Normal S1, Normal S2, No murmurs Lungs: Clear, Other (No crackels or wheezing) Abdomen: Normal bowel sounds, Soft, No tenderness Extremities: No cyanosis, No edema, Normal pulses Skin: No rashes, No breakdown, No significant lesion Labs LABS Laboratory Tests Test 02/23/19 04:05 White Blood Count 7.5 x10^3/uL (4.0-11.0) Red Blood Count 3.85 x10^6/uL (3.50-5.40) Hemoglobin 13.1 g/dL (12.0-15.5) Hematocrit 37.7 % (36.0-47.0) Mean Corpuscular Volume 98 fL (79-100) Mean Corpuscular Hemoglobin 34 pg (25-35) Mean Corpuscular Hemoglobin Concent 35 g/dL (31-37) Red Cell Distribution Width 13.0 % (11.5-14.5) Platelet Count 226 x10^3/uL (140-400) Neutrophils (%) (Auto) 62 % (31-73) Lymphocytes (%) (Auto) 29 % (24-48) Monocytes (%) (Auto) 7 % (0-9) Eosinophils (%) (Auto) 2 % (0-3) Basophils (%) (Auto) 0 % (0-3) Neutrophils # (Auto) 4.6 x10^3uL (1.8-7.7) Lymphocytes # (Auto) 2.1 x10^3/uL (1.0-4.8) Monocytes # (Auto) 0.5 x10^3/uL (0.0-1.1) Eosinophils # (Auto) 0.2 x10^3/uL (0.0-0.7) Basophils # (Auto) 0.0 x10^3/uL (0.0-0.2) Sodium Level 143 mmol/L (136-145) Potassium Level 3.9 mmol/L (3.5-5.1) Chloride Level 107 mmol/L (98-107) Carbon Dioxide Level 27 mmol/L (21-32) Anion Gap 9 (6-14) Blood Urea Nitrogen 4 mg/dL (7-20) Creatinine 0.6 mg/dL (0.6-1.0) Estimated GFR (Cockcroft-Gault) 112.5 Glucose Level 89 mg/dL (70-99) Calcium Level 8.8 mg/dL (8.5-10.1) Review of Systems Review of Systems Denies F/C Denies N/V Denies CP or SOA Assessment and Plan Assessmemt and Plan Assessment Abdominal pain, N/V/D Cholelithiasis, U/s revealing 5cm gallstone w/o CBD dilation, HIDA showing GB EF of 3% Enteritis and Colitis on CT findings, nonspecific Sepsis Plan: D/c when okay with sub-specialists, overall improved, tolerating diet, pain resolving No surgery at this time, appreciate recommendations PPI trial per GI, appreciate recommendations Pain control Rocephin 1gm q24h NS @100 Pain control Recheck labs Home meds Problems Medical Problems: (1) Acute gastroenteritis Status: Acute (2) Cholecystitis Status: Acute (3) Colitis Status: Acute (4) Sepsis Status: Acute Comment Review of Relevant I have reviewed the following items kehinde (where applicable) has been applied. Labs Laboratory Tests Test 02/22/19 04:30 02/23/19 04:05 White Blood Count 8.8 x10^3/uL (4.0-11.0) 7.5 x10^3/uL (4.0-11.0) Red Blood Count 3.95 x10^6/uL (3.50-5.40) 3.85 x10^6/uL (3.50-5.40) Hemoglobin 12.9 g/dL (12.0-15.5) 13.1 g/dL (12.0-15.5) Hematocrit 38.9 % (36.0-47.0) 37.7 % (36.0-47.0) Mean Corpuscular Volume 99 fL (79-100) 98 fL (79-100) Mean Corpuscular Hemoglobin 33 pg (25-35) 34 pg (25-35) Mean Corpuscular Hemoglobin Concent 33 g/dL (31-37) 35 g/dL (31-37) Red Cell Distribution Width 13.2 % (11.5-14.5) 13.0 % (11.5-14.5) Platelet Count 225 x10^3/uL (140-400) 226 x10^3/uL (140-400) Sodium Level 142 mmol/L (136-145) 143 mmol/L (136-145) Potassium Level 2.8 mmol/L (3.5-5.1) 3.9 mmol/L (3.5-5.1) Chloride Level 108 mmol/L (98-107) 107 mmol/L (98-107) Carbon Dioxide Level 24 mmol/L (21-32) 27 mmol/L (21-32) Anion Gap 10 (6-14) 9 (6-14) Blood Urea Nitrogen 4 mg/dL (7-20) 4 mg/dL (7-20) Creatinine 0.5 mg/dL (0.6-1.0) 0.6 mg/dL (0.6-1.0) Estimated GFR (Cockcroft-Gault) 138.8 112.5 BUN/Creatinine Ratio 8 (6-20) Glucose Level 96 mg/dL (70-99) 89 mg/dL (70-99) Calcium Level 7.8 mg/dL (8.5-10.1) 8.8 mg/dL (8.5-10.1) Total Bilirubin 0.3 mg/dL (0.2-1.0) Aspartate Amino Transf (AST/SGOT) 12 U/L (15-37) Alanine Aminotransferase (ALT/SGPT) 14 U/L (14-59) Alkaline Phosphatase 45 U/L (46-116) Total Protein 5.7 g/dL (6.4-8.2) Albumin 2.7 g/dL (3.4-5.0) Albumin/Globulin Ratio 0.9 (1.0-1.7) Neutrophils (%) (Auto) 62 % (31-73) Lymphocytes (%) (Auto) 29 % (24-48) Monocytes (%) (Auto) 7 % (0-9) Eosinophils (%) (Auto) 2 % (0-3) Basophils (%) (Auto) 0 % (0-3) Neutrophils # (Auto) 4.6 x10^3uL (1.8-7.7) Lymphocytes # (Auto) 2.1 x10^3/uL (1.0-4.8) Monocytes # (Auto) 0.5 x10^3/uL (0.0-1.1) Eosinophils # (Auto) 0.2 x10^3/uL (0.0-0.7) Basophils # (Auto) 0.0 x10^3/uL (0.0-0.2) Laboratory Tests Test 02/23/19 04:05 White Blood Count 7.5 x10^3/uL (4.0-11.0) Red Blood Count 3.85 x10^6/uL (3.50-5.40) Hemoglobin 13.1 g/dL (12.0-15.5) Hematocrit 37.7 % (36.0-47.0) Mean Corpuscular Volume 98 fL (79-100) Mean Corpuscular Hemoglobin 34 pg (25-35) Mean Corpuscular Hemoglobin Concent 35 g/dL (31-37) Red Cell Distribution Width 13.0 % (11.5-14.5) Platelet Count 226 x10^3/uL (140-400) Neutrophils (%) (Auto) 62 % (31-73) Lymphocytes (%) (Auto) 29 % (24-48) Monocytes (%) (Auto) 7 % (0-9) Eosinophils (%) (Auto) 2 % (0-3) Basophils (%) (Auto) 0 % (0-3) Neutrophils # (Auto) 4.6 x10^3uL (1.8-7.7) Lymphocytes # (Auto) 2.1 x10^3/uL (1.0-4.8) Monocytes # (Auto) 0.5 x10^3/uL (0.0-1.1) Eosinophils # (Auto) 0.2 x10^3/uL (0.0-0.7) Basophils # (Auto) 0.0 x10^3/uL (0.0-0.2) Sodium Level 143 mmol/L (136-145) Potassium Level 3.9 mmol/L (3.5-5.1) Chloride Level 107 mmol/L (98-107) Carbon Dioxide Level 27 mmol/L (21-32) Anion Gap 9 (6-14) Blood Urea Nitrogen 4 mg/dL (7-20) Creatinine 0.6 mg/dL (0.6-1.0) Estimated GFR (Cockcroft-Gault) 112.5 Glucose Level 89 mg/dL (70-99) Calcium Level 8.8 mg/dL (8.5-10.1) Microbiology 02/21/19 Blood Culture - Preliminary, Resulted NO GROWTH AFTER 2 DAYS 02/21/19 Urine Culture - Final, Complete 02/21/19 Urine Culture Result 1 (MARCUS) - Final, Complete Medications Current Medications Sodium Chloride 1,000 ml @ 1,000 mls/hr Q1H IV Last administered on 02/21/19at 06:41; Start 02/21/19 at 06:30; Stop 02/21/19 at 07:29; Status DC Ondansetron HCl (Zofran) 4 mg 1X ONCE IV Last administered on 02/21/19at 06:39; Start 02/21/19 at 06:30; Stop 02/21/19 at 06:31; Status DC Famotidine (Pepcid Vial) 20 mg 1X ONCE IVP Last administered on 02/21/19at 06:41; Start 02/21/19 at 06:30; Stop 02/21/19 at 06:31; Status DC Fentanyl Citrate (Fentanyl 2ml Vial) 50 mcg 1X ONCE IV ; Start 02/21/19 at 07:30; Stop 02/21/19 at 07:31; Status DC Sodium Chloride 1,000 ml @ 1,000 mls/hr 1X ONCE IV Last administered on 02/21/19at 09:41; Start 02/21/19 at 08:15; Stop 02/21/19 at 09:14; Status DC Iohexol (Omnipaque 300 Mg/ml) 75 ml 1X ONCE IV Last administered on 02/21/19at 08:30; Start 02/21/19 at 08:30; Stop 02/21/19 at 08:31; Status DC Info (CONTRAST GIVEN -- Rx MONITORING) 1 each PRN DAILY PRN MC SEE COMMENTS; Start 02/21/19 at 08:30; Stop 02/23/19 at 08:29; Status DC Sodium Chloride 1,000 ml @ 150 mls/hr Q6H40M IV Last administered on 02/21/19at 12:51; Start 02/21/19 at 08:43; Stop 02/21/19 at 17:36; Status DC Ceftriaxone Sodium (Rocephin) 1 gm 1X ONCE IVP Last administered on 02/21/19at 09:41; Start 02/21/19 at 09:15; Stop 02/21/19 at 09:16; Status DC Sodium Chloride 1,000 ml @ 1,000 mls/hr 1X ONCE IV ; Start 02/21/19 at 09:15; Stop 02/21/19 at 10:14; Status DC Fentanyl Citrate (Fentanyl 2ml Vial) 50 mcg PRN Q2HR PRN IV PAIN; Start 02/21/19 at 13:00 Oxycodone/ Acetaminophen (Percocet 5/325) 1 tab PRN Q4HRS PRN PO PAIN Last administered on 02/21/19at 13:26; Start 02/21/19 at 13:00 Pantoprazole Sodium (PROTONIX VIAL for IV PUSH) 40 mg DAILYAC IVP Last administered on 02/22/19at 05:27; Start 02/21/19 at 14:00; Stop 02/22/19 at 12:00; Status DC Sodium Chloride 1,000 ml @ 100 mls/hr Q10H IV Last administered on 02/23/19at 06:36; Start 02/21/19 at 15:00 Sodium Chloride 1,000 ml @ 1,000 mls/hr 1X ONCE IV Last administered on 02/21/19at 15:00; Start 02/21/19 at 15:00; Stop 02/21/19 at 15:59; Status DC Potassium Chloride (Klor-Con) 40 meq 1X ONCE PO Last administered on 02/22/19at 12:06; Start 02/22/19 at 09:00; Stop 02/22/19 at 09:03; Status DC Potassium Chloride (Klor-Con) 20 meq 1X ONCE PO Last administered on 02/22/19at 12:06; Start 02/22/19 at 11:00; Stop 02/22/19 at 11:01; Status DC Sincalide 1.18 mcg/Sodium Chloride 30 ml @ 120 mls/hr 1X ONCE IV Last administered on 02/22/19at 10:02; Start 02/22/19 at 10:00; Stop 02/22/19 at 10:14; Status DC Ceftriaxone Sodium (Rocephin) 1 gm Q24H IVP Last administered on 02/23/19at 12:13; Start 02/22/19 at 11:30 Lactobacillus Rhamnosus (Culturelle) 1 cap BID PO Last administered on 02/23/19at 08:04; Start 02/22/19 at 21:00 Pantoprazole Sodium (Protonix) 40 mg DAILYAC PO Last administered on 02/23/19at 08:04; Start 02/23/19 at 07:30 Vitals/I & O Vital Sign - Last 24 Hours 02/22/19 02/22/19 02/22/19 02/22/19 15:00 19:00 20:00 23:00 Temp 98.1 98.1 97.8 98.1 98.1 97.8 Pulse 69 64 61 Resp 16 18 18 B/P (MAP) 100/60 (73) 102/54 (70) 99/48 (65) Pulse Ox 97 97 99 O2 Delivery Room Air Room Air Room Air Room Air 02/23/19 02/23/19 02/23/19 02/23/19 03:00 06:36 07:54 11:00 Temp 98.0 98.3 98.3 98.0 98.3 98.3 Pulse 60 68 61 Resp 18 16 16 B/P (MAP) 84/41 (55) 94/54 (67) 94/49 (64) 106/58 (74) Pulse Ox 99 99 100 O2 Delivery Room Air Room Air Room Air Intake and Output 02/22/19 02/22/19 02/23/19 15:00 23:00 07:00 Intake Total 240 ml Balance 240 ml ALBANIA VEGA K III DO Feb 23, 2019 12:37
--- NOTE | 2019-02-23 13:01 | PDOC3 ---
[facility]Dis[facility] Summary Date of Admission: Date of Admission: Feb 21, 2019 Date of Discharge: Date of Discharge: Feb 23, 2019 Admission Diagnosis: Problems: (1) Colitis (2) Acute gastroenteritis (3) Sepsis (4) Cholecystitis Discharge Diagnosis: Discharge Diagnosis: Resolving abdominal pain with gallstones Consults: Consults: General surgery and GI Procedures: Procedures: None but she did have a HIDA scan that showed low ejection fraction of the gallbladder Hospital Course: Hospital Course: Patient is an middle-aged female who presented with abdominal pain she was noted to have symptomatic gallstones admitted the patient and consult general surgery and GI Yesterday she went for a HIDA scan which did show a low ejection fraction of her gallbladder This morning when I saw the patient she was up eating and tolerating her food I told her if she didn't have any nausea later we will are gone this afternoon if okay with consultants Disposition: Disposition/Orders: D/C to Home Activity: Activity: Resume previous activity Diet: Diet: Soft Total Time: Total Time: 33 minutes ALBANIA VEGA III, DO Feb 23, 2019 13:01
--- NOTE | 2019-02-23 13:59 | PDOC ---
Subjective: Subjective: Denies n/v, abd pain, and diarrhea. Objective: Objective: Stool studies remain uncollected. Vital Signs: Vital Signs Date Time Temp Pulse Resp B/P (MAP) Pulse Ox O2 Delivery O2 Flow Rate FiO2 02/23/19 11:00 98.3 61 16 106/58 (74) 100 Room Air 98.3 Labs: URINE CULTURE Final Final report URINE CULTURE RES 1 Final Comment Mixed urogenital ashanti PE: GEN: NAD LUNGS: CTAB HEART: RRR ABD: NABS, S/ND/NT NEURO/PSYCH: A & O 3 A/P: Recurrent epigastric/RUQ pain, vomiting, diarrhea - currently asymptomatic Cholelithiasis, abnormal GB EF - no surgical plans as inpt -- Plans to DC. STEFFI DINH Feb 23, 2019 13:59
--- NOTE | 2019-02-23 15:19 | NUR ---
Client d/c approximately at 1519. Client VSS, A&OX4. Client was educated on what foods to avoid, resource packet from was given for medical needs, instructed on detrimental signs and symptoms. Client verbalized understanding. [facility] wheelchair by staff. Client was transported home by , accompanied by her children.
== END 2019-02-23 15:19 | disposition home or self-care (01) | DRG 872 ==
LOC: ER 06:00 → 4 NORTH 08:29
PROVIDERS: ADMIT Internal Medicine; ATTEND Internal Medicine
DX: A41.9 Sepsis, unspecified organism (principal); K80.10 Calculus of gallbladder with chronic cholecystitis without obstruction; E87.6 Hypokalemia; K52.9 Noninfective gastroenteritis and colitis, unspecified; Z98.891 History of uterine scar from previous surgery
CPT/HCPCS: 36415; 74177; 76705; 78227; 80048; 80053; 81001; 81025; 83605; 83690; 85007; 85025; 85027; 87040; 87086; 96361; 96374; 96375; A9537; C9113; J0696; J2405; J2805; J3490; J7030; Q9967; 99285-25